=== PATIENT | female | born 1940 | race Caucasian/White ===

== ENCOUNTER 2018-06-08 17:09 | Emergency (ER) | payer OTHER ==
[~2018-06-08] VITALS: Ht 152.4 cm; Wt 79.4 kg
[~2018-06-08 17:09] MED LIST: Carafate1 GM/10 ML; Citalopram10 MG/5 ML; HYDPAM50 PO; HYOS0.375T PO; LISHYD1012; OMEP20ER; OMEP20ER PO; OXYACE5T PO; PRAV20; PROM6.25SY; ROSU10TA; SERT50; VENL75ER PO; [UNRECOGNIZED DRUG - REMARK]
[2018-06-08] MEDS ORDERED: LISI20 PO (17:24)
[2018-06-08] MEDS ORDERED: CLOP75 PO (17:25)
[2018-06-08] MEDS ORDERED: ASPI81CH PO (17:25)
[2018-06-08] MEDS ORDERED: CYCL10 PO (17:26)
[2018-06-08] MEDS ORDERED: OXYC5 (17:26)
[2018-06-08 18:04] LABS: BASOPHILS ABSOLUTE AUTO 0.04 K/mm3 (0.00-0.23); BASOPHILS PERCENT AUTO 0 % (0-2); EOSINOPHILS ABSOLUTE AUTO 0.01 K/mm3 (0.00-0.68); EOSINOPHILS PERCENT AUTO 0 % (0-6); Hematocrit 33.6 % (33.0-51.0); Hemoglobin 11.1 g/dL (11.5-16.0); IMMATURE GRAN ABSOLUTE AUTO 0.11 K/mm3 (0.00-0.10); IMMATURE GRAN PERCENT AUTO 1 % (0-1); LYMPHOCYTES ABSOLUTE AUTO 2.75 K/mm3 (0.84-5.20); LYMPHOCYTES PERCENT AUTO 17 % (21-46); MONOCYTES ABSOLUTE AUTO 1.17 K/mm3 (0.16-1.47); MONOCYTES PERCENT AUTO 7 % (4-13); Mean Corpuscular HGB 29.3 pg (26.0-34.0); Mean Corpuscular Volume 89 fL (80-100); NEUTROPHILS ABSOLUTE AUTO 11.99 K/mm3 (1.96-9.15); NEUTROPHILS PERCENT AUTO 75 % (41-73); Platelet Count 357 K/mm3 (150-400); RDW Coefficient Variation 12.9 % (11.7-14.2); RDW Standard Deviation 42.1 fL (35.1-46.3); Red Blood Cell Count 3.79 M/mm3 (3.80-5.20); White Blood Cell Count 16.07 K/mm3 (4.00-11.30)
[2018-06-08 18:06] LABS: Alanine Aminotransfer (ALT/SGP 39 U/L (12-78); Albumin/Globulin Ratio 0.7 (0.8-1.8); Alk Phos 198 U/L (50-136); Anion Gap 12 mmol/L (6-16); Aspartate Aminotrans (AST/SGOT 54 U/L (12-37); Bilirubin, Total 0.6 mg/dL (0.1-1.0); Blood Urea Nitrogen 14 mg/dL (8-24); Bun/Creatinine Ratio 15.3 (12.0-20.0); CO2, Blood 22 mmol/L (21-32); Calcium, Blood 8.6 mg/dL (8.5-10.1); Chloride, Blood 107 mmol/L (98-108); Creatinine, Blood 0.92 mg/dL (0.40-1.00); Globulin, Blood 4.1 g/dL (2.2-4.0); Glomerular Filtration Rate >60 (60-); Glucose, Blood 118 mg/dL (70-99); Sodium, Blood 141 mmol/L (136-145); Total Protein, Blood 7.1 g/dL (6.4-8.2)
[2018-06-08 19:01] LABS: Source, Urine Catheter
[2018-06-08 19:11] LABS: Appearance, Urine Hazy (Clear); Bilirubin, Urine Neg (Neg); Blood, Urine 1+ (Neg); Color, Urine Yellow (P-Yellow); Glucose Qualitative, Urine Neg (Neg); Ketones, Urine Neg (Neg); Leukocyte Esterase, Urine 1+ (Neg); Nitrite, Urine Neg (Neg); Protein, Urine Neg (Neg); Urobilinogen, Urine NORM (Normal); pH, Urine 6.5 (5.0-8.0)
[2018-06-08 19:20] LABS: Bacteria Many /hpf; Red Blood Cells, Urine Not Seen /hpf (0-2); Squamous Epithelial Cells Not Seen /hpf (Few)
== END 2018-06-08 19:25 | disposition short-term general hospital (02) ==
LOC: ER 17:09
PROVIDERS: Emergency Medicine
DX: R51 Headache (principal); R50.9 Fever, unspecified; N39.0 Urinary tract infection, site not specified; Z79.899 Other long term (current) drug therapy; Z79.82 Long term (current) use of aspirin; I10 Essential (primary) hypertension
CPT/HCPCS: 36415; 51702; 71045; 80053; 81001; 83605; 84484; 85025; 87077; 87086; 87186; 93005; 93010; 96361; 96365; 96375; 99285-25; J0713; J2405; J3010; J7030

== ENCOUNTER → 2018-06-19 | Outpatient (CLI) | payer OTHER ==
[~2018-06-19] MED LIST changes: +ASPI81CH PO; +CLOP75 PO; +CYCL10 PO; +LISI20 PO; +OXYC5
[2018-06-19 12:11] LABS: Hematocrit 32.2 % (33.0-51.0); Hemoglobin 10.1 g/dL (11.5-16.0); Mean Corpuscular HGB 28.1 pg (26.0-34.0); Mean Corpuscular HGB Conc 31.4 g/dL (31.5-36.5); Mean Corpuscular Volume 89 fL (80-100); Mean Platelet Volume 10.4 fL (9.1-12.4); Platelet Count 362 K/mm3 (150-400); RDW Coefficient Variation 13.4 % (11.7-14.2); White Blood Cell Count 8.77 K/mm3 (4.00-11.30)
[2018-06-19 12:22] LABS: Albumin, Blood 2.9 g/dL (3.4-5.0); Albumin/Globulin Ratio 0.8 (0.8-1.8); Bilirubin, Total 0.3 mg/dL (0.1-1.0); C-REACTIVE PROTEIN, EXT RANGE 4.85 mg/dL (0.000-0.300); Calcium, Blood 8.6 mg/dL (8.5-10.1); Creatinine, Blood 1.18 mg/dL (0.40-1.00); Globulin, Blood 3.8 g/dL (2.2-4.0); Potassium, Blood 3.5 mmol/L (3.5-5.5); Total Protein, Blood 6.7 g/dL (6.4-8.2)
[2018-06-19 12:44] LABS: BASOPHILS PERCENT MAN 0 % (0-2); EOSINOPHILS ABSOLUTE MAN 0.96 K/mm3 (0.00-0.68); EOSINOPHILS PERCENT MAN 11 % (0-6); LYMPHOCYTES ABSOLUTE MAN 1.49 K/mm3 (0.84-5.20); LYMPHOCYTES PERCENT MAN 17 % (21-46); MONOCYTES ABSOLUTE MAN 0.87 K/mm3 (0.16-1.47); MONOCYTES PERCENT MAN 10 % (4-13); NEUTROPHILS ABSOLUTE MAN 5.43 K/mm3 (1.96-9.15); SEG NEUTROPHILS PERCENT MAN 62 % (41-73); TOTAL CELLS COUNTED 100
[2018-06-19 16:22] LABS: Vancomycin, Trough 26.2 ug/mL (5.0-10.0)
== END ==
LOC: LAB 07:50 → LAB SHORT 07:50
PROVIDERS: Neurological Surgery
DX: G06.1 Intraspinal abscess and granuloma (principal); I25.10 Atherosclerotic heart disease of native coronary artery without angina pectoris; I10 Essential (primary) hypertension
CPT/HCPCS: 80053; 80202; 85007; 85027; 86140

== ENCOUNTER 2019-03-08 08:18 | Day surgery (SDC) | payer OTHER ==
[~2019-03-08] VITALS: Ht 152.4 cm; Wt 75.1 kg
[~2019-03-08 08:18] MED LIST changes: -Citalopram10 MG/5 ML
[2019-03-08] MEDS ORDERED: Naproxen375 MG PO (09:21)
--- NOTE | 2019-03-08 09:42 | NUR ---
03/08/[address] NOTIFIED OF PREOP BP READINGS. NO ORDERS AT THIS TIME.
== END 2019-03-08 10:39 | disposition home or self-care (01) ==
LOC: ORSCSDS 08:18
PROVIDERS: Internal Medicine Gastroenterology
PROC: 0DBM8ZX Excision of Descending Colon, Via Natural or Artificial Opening Endoscopic, Diagnostic (ICD-10-PCS; principal; 2019-03-08 09:45)
DX: Z12.11 Encounter for screening for malignant neoplasm of colon (principal); Z86.010 Personal history of colon polyps; D12.4 Benign neoplasm of descending colon; K57.30 Diverticulosis of large intestine without perforation or abscess without bleeding; K64.8 Other hemorrhoids; G47.33 Obstructive sleep apnea (adult) (pediatric); E66.9 Obesity, unspecified; Z68.33 Body mass index [BMI] 33.0-33.9, adult; Z79.899 Other long term (current) drug therapy
CPT/HCPCS: 88305; J2704; J7120

== ENCOUNTER 2019-06-03 14:57 | Inpatient (IN) | payer OTHER ==
[~2019-06-03] VITALS: Ht 152.4 cm; Wt 75.0 kg
[~2019-06-03 14:57] MED LIST changes: +Naproxen375 MG PO
[2019-06-03 15:29] LABS: BASOPHILS ABSOLUTE AUTO 0.04 K/mm3 (0.00-0.23); BASOPHILS PERCENT AUTO 1 % (0-2); EOSINOPHILS PERCENT AUTO 4 % (0-6); Hematocrit 35.6 % (33.0-51.0); Hemoglobin 11.5 g/dL (11.5-16.0); IMMATURE GRAN ABSOLUTE AUTO 0.02 K/mm3 (0.00-0.10); IMMATURE GRAN PERCENT AUTO 0 % (0-1); LYMPHOCYTES ABSOLUTE AUTO 2.68 K/mm3 (0.84-5.20); LYMPHOCYTES PERCENT AUTO 35 % (21-46); MONOCYTES ABSOLUTE AUTO 0.61 K/mm3 (0.16-1.47); MONOCYTES PERCENT AUTO 8 % (4-13); Mean Corpuscular HGB 27.4 pg (26.0-34.0); Mean Corpuscular HGB Conc 32.3 g/dL (31.5-36.5); Mean Corpuscular Volume 85 fL (80-100); Mean Platelet Volume 10.7 fL (9.1-12.4); NEUTROPHILS PERCENT AUTO 52 % (41-73); Platelet Count 260 K/mm3 (150-400); RDW Coefficient Variation 15.7 % (11.7-14.2); RDW Standard Deviation 48.3 fL (35.1-46.3); Red Blood Cell Count 4.19 M/mm3 (3.80-5.20); White Blood Cell Count 7.65 K/mm3 (4.00-11.30)
[2019-06-03 15:54] LABS: Troponin I <0.015 ng/mL (0.000-0.040)
[2019-06-03 16:06] LABS: Alanine Aminotransfer (ALT/SGP 21 U/L (12-78); Albumin, Blood 3.6 g/dL (3.4-5.0); Alk Phos 79 U/L (50-136); Anion Gap 6 mmol/L (6-16); Aspartate Aminotrans (AST/SGOT 17 U/L (12-37); Bilirubin, Total 0.3 mg/dL (0.1-1.0); Blood Urea Nitrogen 28 mg/dL (8-24); Bun/Creatinine Ratio 26.4 (12.0-20.0); CO2, Blood 21 mmol/L (21-32); Calcium, Blood 8.9 mg/dL (8.5-10.1); Chloride, Blood 116 mmol/L (98-108); Creatinine, Blood 1.06 mg/dL (0.40-1.00); Globulin, Blood 3.5 g/dL (2.2-4.0); Glomerular Filtration Rate 53 (60-); Glucose, Blood 102 mg/dL (70-99); Potassium, Blood 4.3 mmol/L (3.5-5.5); Sodium, Blood 143 mmol/L (136-145); Total Protein, Blood 7.1 g/dL (6.4-8.2)
[2019-06-03] MEDS ORDERED: Prinivil10 MG PO (17:30)
[2019-06-03] MEDS ORDERED: LOW DOSE ASPIRI81 MG PO (17:31)
[2019-06-03] MEDS ORDERED: Isosorbide Mono30 MG PO (17:31)
[2019-06-03] MEDS ORDERED: NITR.4SL SL (17:32)
[2019-06-03] MEDS ORDERED: Citalopram HBr10 MG PO (18:28)
[2019-06-03] MEDS ORDERED: Benadryl25 MG PO (18:29)
[2019-06-03] MEDS ORDERED: CLOP75 PO (19:00)
--- NOTE | 2019-06-03 21:12 | NUR ---
PATIENT IS A NEW ADMIT FROM THE ED. SELF TRANSFER FROM [facility] TO BED. AXO X 3. PATIENT DENIES CHEST PAIN ON ADMIT. NITRO PATCH GALI CHEST IN PLACE FROM ED. PATIENT ORIENTED TO ROOM AND CALL LIGHT SYSTEM. ON RA AND WAITNG FOR TELEMETRY TO BE PLACED. DENIES SOB AND N/V. BP 145/90 DOWN FROM 214/102 IN ED. PATIENT RESTING IN BED AND RECEIVING CALLS FROM SPOUSE. WILL CONTINUE TO MONITOR.
--- NOTE | 2019-06-03 22:00 | NUR ---
TELEMETRY IN PLACE AND TECH REPORTS NSR, BBB, @ 79
--- NOTE | 2019-06-04 04:30 | NUR ---
SHIFT SUMMARY PATIENT HAD NO ACUTE CHANGES OBSERVED THIS SHIFT. DENIES CHEST PAIN, SOB, AND N/V. AXO X3 AND INDEPENDENT IN ROOM. SECOND TROPONIN NEGATIVE. VSS/AFEBRILE. PIV REMAINS INTACT. DEVELOPMENT TECHNICAL LEAD REPORTS NSR,BBB AT 79. TAKES MEDICATION WHOLE WITH WATER. NITRO PATCH GALI CHEST. ECHO IN AM. CALL LIGHT IN REACH. BED IN LOWEST POSITION. WILL CONTINUE TO MONITOR UNTIL DAY SHIFT NURSE ASSUMES CARE.
[2019-06-04 06:59] LABS: BASOPHILS ABSOLUTE AUTO 0.03 K/mm3 (0.00-0.23); BASOPHILS PERCENT AUTO 1 % (0-2); EOSINOPHILS ABSOLUTE AUTO 0.29 K/mm3 (0.00-0.68); EOSINOPHILS PERCENT AUTO 5 % (0-6); Hematocrit 35.3 % (33.0-51.0); Hemoglobin 11.2 g/dL (11.5-16.0); IMMATURE GRAN ABSOLUTE AUTO 0.02 K/mm3 (0.00-0.10); IMMATURE GRAN PERCENT AUTO 0 % (0-1); LYMPHOCYTES ABSOLUTE AUTO 2.51 K/mm3 (0.84-5.20); LYMPHOCYTES PERCENT AUTO 40 % (21-46); MONOCYTES ABSOLUTE AUTO 0.56 K/mm3 (0.16-1.47); MONOCYTES PERCENT AUTO 9 % (4-13); Mean Corpuscular HGB 26.7 pg (26.0-34.0); Mean Corpuscular HGB Conc 31.7 g/dL (31.5-36.5); Mean Corpuscular Volume 84 fL (80-100); Mean Platelet Volume 10.3 fL (9.1-12.4); NEUTROPHILS ABSOLUTE AUTO 2.85 K/mm3 (1.96-9.15); NEUTROPHILS PERCENT AUTO 46 % (41-73); Platelet Count 220 K/mm3 (150-400); RDW Coefficient Variation 15.6 % (11.7-14.2); White Blood Cell Count 6.26 K/mm3 (4.00-11.30)
[2019-06-04 07:20] LABS: Alanine Aminotransfer (ALT/SGP 20 U/L (12-78); Albumin, Blood 3.3 g/dL (3.4-5.0); Albumin/Globulin Ratio 1.1 (0.8-1.8); Alk Phos 73 U/L (50-136); Anion Gap 8 mmol/L (6-16); Aspartate Aminotrans (AST/SGOT 16 U/L (12-37); Bilirubin, Total 0.5 mg/dL (0.1-1.0); Blood Urea Nitrogen 25 mg/dL (8-24); Bun/Creatinine Ratio 24.3 (12.0-20.0); CHOL/HDL RATIO 5.5; CO2, Blood 23 mmol/L (21-32); Calcium, Blood 8.3 mg/dL (8.5-10.1); Chloride, Blood 115 mmol/L (98-108); Cholesterol 243 mg/dL (50-200); Creatinine, Blood 1.03 mg/dL (0.40-1.00); Globulin, Blood 3.1 g/dL (2.2-4.0); Glomerular Filtration Rate 55 (60-); Glucose, Blood 95 mg/dL (70-99); HDL Cholesterol 44 mg/dL (>39); LDL/HDL RATIO 3.9; Low Density Lipoprotein Chol 170 mg/dL (0-110); Magnesium, Blood 2.1 mg/dL (1.6-2.4); Potassium, Blood 4.1 mmol/L (3.5-5.5); Sodium, Blood 146 mmol/L (136-145); Total Protein, Blood 6.4 g/dL (6.4-8.2); Triglycerides 145 mg/dL (30-160); Very Low Density Lipoprot Chol 29 mg/dL (6-32)
[2019-06-04 07:24] LABS: Thyroid Stimulating Hormone 0.984 uIU/mL (0.360-4.800)
--- NOTE | 2019-06-04 11:16 | NUR ---
Echocardiogram completed.
--- NOTE | 2019-06-04 19:17 | NUR ---
SHIFT SUMMARY: NO ACUTE CHANGES TO REPORT THIS SHIFT. PT A&O; CALM AND COOPERATIVE WITH CARE. NO C/O CHEST PAIN THIS SHIFT. TELE IN PLACE; NSR c BBB @ 76 PER [facility] CONSULTANT DURING MORNING ASSESSMENT. PART 1 OF LAMONT TODAY; SECOND PART 06/05 IN AM. REPORT GIVEN TO ONCOMING RN.
[2019-06-05 04:34] LABS: BASOPHILS ABSOLUTE AUTO 0.04 K/mm3 (0.00-0.23); BASOPHILS PERCENT AUTO 1 % (0-2); EOSINOPHILS ABSOLUTE AUTO 0.28 K/mm3 (0.00-0.68); EOSINOPHILS PERCENT AUTO 4 % (0-6); Hematocrit 35.4 % (33.0-51.0); Hemoglobin 11.2 g/dL (11.5-16.0); IMMATURE GRAN ABSOLUTE AUTO 0.02 K/mm3 (0.00-0.10); IMMATURE GRAN PERCENT AUTO 0 % (0-1); LYMPHOCYTES ABSOLUTE AUTO 3.01 K/mm3 (0.84-5.20); LYMPHOCYTES PERCENT AUTO 42 % (21-46); MONOCYTES ABSOLUTE AUTO 0.64 K/mm3 (0.16-1.47); MONOCYTES PERCENT AUTO 9 % (4-13); Mean Corpuscular HGB 26.9 pg (26.0-34.0); Mean Corpuscular HGB Conc 31.6 g/dL (31.5-36.5); Mean Corpuscular Volume 85 fL (80-100); Mean Platelet Volume 10.5 fL (9.1-12.4); NEUTROPHILS ABSOLUTE AUTO 3.26 K/mm3 (1.96-9.15); NEUTROPHILS PERCENT AUTO 45 % (41-73); Platelet Count 227 K/mm3 (150-400); RDW Coefficient Variation 15.5 % (11.7-14.2); RDW Standard Deviation 48.3 fL (35.1-46.3); Red Blood Cell Count 4.17 M/mm3 (3.80-5.20); White Blood Cell Count 7.25 K/mm3 (4.00-11.30)
[2019-06-05 05:04] LABS: Bun/Creatinine Ratio 23.9 (12.0-20.0); Calcium, Blood 9.1 mg/dL (8.5-10.1); Creatinine, Blood 1.17 mg/dL (0.40-1.00); Potassium, Blood 4.2 mmol/L (3.5-5.5)
[2019-06-05 05:06] LABS: Percent Saturation 15.4 % (15.0-50.0)
--- NOTE | 2019-06-05 06:46 | NUR ---
SHIFT SUMMARY PT HAS BEEN NPO SINCE MIDNIGHT. PT SLEPT T/O SHIFT. PT HAD NO CP OR SOB NOTED. PT CURRENTLY SLEEPING AND BREATHING EASY. CALL LIGHT IN REACH.
--- NOTE | 2019-06-05 14:08 | NUR ---
DR. CHAUDHARI AT BEDSIDE TALKING WITH PATIENT
--- NOTE | 2019-06-05 17:30 | NUR ---
SHIFT SUMMARY OX4, INDEPENDENT. ABNORMAL STRESS TEST COMPLETED TODAY. ANGIOGRAM TOMORROW ORDERED BY DR. READ. DENIES ANY CP, SOB OR NAUSEA TODAY. HX OF CABG X6. EATING AND DRINKING WELL.
--- NOTE | 2019-06-06 05:00 | NUR ---
Patient has had a rest full night. no complaints of pain or discomfort. She is knowledgable about the angiogram and her only question is about when the testing will take place. She has been up in the room and in the hallway without issue. call light within reach.
--- NOTE | 2019-06-06 14:52 | NUR ---
TRANSPORTED TO [facility] VIA W/C IN NO ACUTE DISTRESS ACCOMPANIED BY [facility] STAFF.
--- NOTE | 2019-06-06 17:45 | NUR ---
INITIAL ASSESSMENT PATIENT ARRIVED TO UNIT FROM RN WOUND CARE AT 1725. PATIENT ALERT AND ORIENTED X 4, AFEBRILE. PATIENT HAS NO COMPLAINTS OF PAIN. NOW IN ROOM. PATIENT SATTING 90% AND GREATER ON RA. LUNGS CLEAR IN UPPER LOBES, DIMINISHED IN LOWER LOBES. PATIENT REPORTS THAT SHE HAS A DRY COUGH. PATIENT IN SR WITH BBB. HR 80S TO 90S. BP STABLE. RADIAL PULSES 2+ IN STRENGTH. D. PEDIS PULSES 2+ IN STRENGTH. TIBIAL PULSES 1+ IN STRENGTH. PATIENT'S LEGS APPEAR TO HAVE NON-PITTING EDEMA. PATIENT STATES HER LARGE LEGS RUN IN HER FAMILY. PATIENT REPORTS THAT LEGS HAVE BEEN LARGE AND TENDER SINCE SHE WAS 52 YEARS OLD. GI WNL. WNL. R GROIN RN WOUND CARE ACCESS SITE WNL- NO BLEEDING, BRUISING, HEMATOMA NOTED. IV FLUSHED AND SALINE LOCKED. PATIENT ORIENTED TO UNIT, ROOM AND CALL SYSTEM. BED LOW, CALL LIGHT IN REACH. WILL CONTINUE TO MONITOR PATIENT FREQUENTLY.
--- NOTE | 2019-06-06 19:07 | NUR ---
SHIFT SUMMARY PATIENT REMAINS UNCHANGED SINCE ADMIT TO UNIT SHORT TIME AGO. VITAL SIGNS HAVE REMAINED STABLE. PATIENT CONTINUES TO LIE STILL, WITHOUT LIFTING HEAD OR MOVING R LEG. PATIENT DID NOT VOID OR HAVE BM SINCE ARRIVING. PATIENT DID EAT TURKEY SANDWICH WITH NO PROBLEMS. R GROIN SITE REMAINS UNCHANGED- NO BLEEDING, BRUISING, OR HEMATOMA NOTED. REPORT GIVEN TO ASSUMING NURSE, NAYAN PADILLA.
--- NOTE | 2019-06-06 20:31 | NUR ---
SPOKE WITH DR. READ ABOUT PT TRANSFERING TO [facility]. DR. READ STATES IT WILL BE DONE IN AM. PT RESTING QUIETLY IN BED. REMAINS FLAT WITHOUT FLEXION OF R LEG OR NECK D/T R FEMORAL ACCESS SITE FROM ANGIOGRAM. SITE IS STABLE WITHOUT SIGN OF BLEEDING OR HEMATOMA. PT C/O OF MONIQUE THAT TYLENOL WAS GIVEN FOR. NO OTHER C/O PAIN. CALL LIGHT IN REACH.
--- NOTE | 2019-06-07 06:39 | NUR ---
SUMMARY PT DID WELL DURING THE NIGHT. DENIES PAIN. R GROIN SITE REMAINS STABLE. HAS BEEN UP TO BATHROOM WITHOUT ISSUE. NO SIGN OF DISTRESS.
--- NOTE | 2019-06-07 07:41 | NUR ---
CARE ASSUMED CARE AND REPORT ASSUMED FROM NAYAN VILLELA. PT SITTING UP IN BED. DENIES CHEST PAIN THIS AM AND DENIES ANY NAUSEA OR ABDOMINAL PAIN. VSS. NSR, HR 70S. BP STABLE. AFEBRILE. PT UPDATED ON TRANSFER STATUS AND INFORMED THAT CURRENTLY AWAITING JUST AN MD CONSULT FROM [facility]; NO TRANSFER IN PLAN AT THIS TIME. ALSO UPDATED ON TELEPHONE. IV SALINE LOCKED. PT A/O, CALM AND APPROPRIATE. R GROIN SITE IS CLEAN AND DRY AND IS SOFT AROUND SITE. LARGE, ROUND, LOCALIZED HEMATOMA TO ABDOMEN; LIKELY FROM [place]. WILL CONTINUE TO MONITOR.
--- NOTE | 2019-06-07 09:15 | NUR ---
COFFEE MAKER NOTE: DR. READ CALLED TO [facility]NALY[facility] AT [facility] HAS NOT ACCEPTED THE PT FOR TRANSFER BECAUSE HE WANTS TO SEE HER AN OUTPATIENT. DR. READ WILL MEDICALLY MANAGE FOR NOW. ORDER FOR IMDUR RECEIVED AND IMPLEMENTED.
--- NOTE | 2019-06-07 12:12 | NUR ---
REASSESSMENT PT GAVE HERSELF BEDBATH AND LINEN CHANGE WAS COMPLETED. REFUSED LUNCH, SHE STATES SHE IS TOO TIRED AND WOULD LIKE TO TAKE A NAP AT THIS TIME. HAD EXTENSIVE CONVERSATION WITH PT AND REGARDING WHY SHE IS NO LONGER BEING TRANSFERRED AND INSTEAD BEING MEDICALLY MANAGED HERE. VSS AT THIS TIME. IV SALINE LOCKED. AFEBRILE. WILL CONTINUE TO MONITOR.
[2019-06-07 15:29] LABS: BASOPHILS ABSOLUTE AUTO 0.06 K/mm3 (0.00-0.23); BASOPHILS PERCENT AUTO 1 % (0-2); EOSINOPHILS ABSOLUTE AUTO 0.19 K/mm3 (0.00-0.68); EOSINOPHILS PERCENT AUTO 2 % (0-6); Hematocrit 38.9 % (33.0-51.0); Hemoglobin 12.4 g/dL (11.5-16.0); IMMATURE GRAN ABSOLUTE AUTO 0.04 K/mm3 (0.00-0.10); IMMATURE GRAN PERCENT AUTO 0 % (0-1); LYMPHOCYTES ABSOLUTE AUTO 2.93 K/mm3 (0.84-5.20); LYMPHOCYTES PERCENT AUTO 28 % (21-46); MONOCYTES PERCENT AUTO 7 % (4-13); Mean Corpuscular HGB 27.1 pg (26.0-34.0); Mean Corpuscular HGB Conc 31.9 g/dL (31.5-36.5); Mean Corpuscular Volume 85 fL (80-100); Mean Platelet Volume 10.8 fL (9.1-12.4); NEUTROPHILS ABSOLUTE AUTO 6.53 K/mm3 (1.96-9.15); NEUTROPHILS PERCENT AUTO 63 % (41-73); Platelet Count 282 K/mm3 (150-400); RDW Coefficient Variation 15.8 % (11.7-14.2); Red Blood Cell Count 4.58 M/mm3 (3.80-5.20); White Blood Cell Count 10.45 K/mm3 (4.00-11.30)
[2019-06-07 15:48] LABS: Bun/Creatinine Ratio 24.8 (12.0-20.0); Calcium, Blood 9.2 mg/dL (8.5-10.1); Creatinine, Blood 1.21 mg/dL (0.40-1.00); Potassium, Blood 4.1 mmol/L (3.5-5.5)
--- NOTE | 2019-06-07 16:40 | NUR ---
REASSESSMENT PT INDEPENDENT IN ROOM; UP TO TOILET AND SINK WITH NO ASSIST. CURRENTLY SITTING UP IN BED KNITTING. DENIES CHEST PAIN. BP 83/57, MAP 67. ASYMPTOMATIC AT THIS TIME. AFEBRILE. CALLED AND UPDATED ON TELEPHONE REGARDING CONVERSATION PT HAD WITH MD BLANCO. BOTH PT AND DISPLAY UNDERSTANDING OF FURTHER PLAN, MEDICATION ADJUSTMENT, AND PLAN TO STAY AT [facility]. AWAITING BED IN PCU. WILL CONTINUE TO MONITOR.
--- NOTE | 2019-06-07 17:01 | NUR ---
TRANSFER REPORT CALLED TO [facility] IN PCU. PT TO BE TRANSFERRED TO PCU BY WHEELCHAIR.
--- NOTE | 2019-06-07 17:15 | NUR ---
ASSUMED CARE PT TRANSFERRED FROM ICU. PT ORIENTED TO UNIT. VS STABLE. PT DENIES ANY CHEST PAIN OR PRESSURE. HR NSR ON MONITOR. PT ABLE TO AMBULATE TO BED INDEPENDENTLY. PT SITTING UP EATING DINNER. NS INFUSING PER ORDERS. WILL CONTINUE TO MONITOR AND REPORT TO ONCOMING RN. CALL LIGHT IN REACH.
[2019-06-08 03:56] LABS: Bun/Creatinine Ratio 26.2 (12.0-20.0); Calcium, Blood 8.7 mg/dL (8.5-10.1); Creatinine, Blood 1.07 mg/dL (0.40-1.00)
--- NOTE | 2019-06-08 04:33 | NUR ---
Shift Summary VSS. No apparent sign of distress. No changes to mentation, pt remains A & O. Pt denies chest pain or pressure. Femoral site free from s/sx bleeding, hematoma, bruising. Site soft and nontender. Breathing remains easy and unlabored on RA. Pt calls appropriately, able to make needs known, walks to bathroom with minimal assistance. See shift assessment for detailed assessment. No changes from initial assessment. Pt sleeping thoughout shift, appears comfortable, no complaint of pain. No changes or events on tele. Will continue to monitor until shift change.
[2019-06-08] MEDS ORDERED: ATOR40TA PO (14:20)
[2019-06-08] MEDS ORDERED: METO25ER PO (14:24)
--- NOTE | 2019-06-08 15:10 | NUR ---
DISHCARGE NOTE PT ALERT AND ORIENTED. VS STABLE. BP STABLE. HR NSR WITH BBB. PT DENIES ANY CHEST PAIN AT REST OR WITH EXERTION. ORDERS FOR DISCHARGE PROVIDED. PT EDUCATED ON DISCHARGE INSTRUCTIONS AND NEW MEDICATIONS. ALL QUESTIONS ANSWERED. PT TAKEN OUT BY WHEELCHAIR.
== END 2019-06-08 15:08 | disposition short-term general hospital (02) | DRG 287 ==
LOC: ER 14:57 → MEDS 14:58 → ER 18:38 → MEDS 18:38 → ICUW 06-06 14:55 → PCU 06-07 17:15
PROVIDERS: Hospitalist; Internal Medicine Cardiovascular Disease; Physician Assistant; ADMIT Internal Medicine
PROC: B2111ZZ Fluoroscopy of Multiple Coronary Arteries using Low Osmolar Contrast (ICD-10-PCS; principal; 2019-06-06)
PROC: B2131ZZ Fluoroscopy of Multiple Coronary Artery Bypass Grafts using Low Osmolar Contrast (ICD-10-PCS; 2019-06-06)
DX: I25.700 Atherosclerosis of coronary artery bypass graft(s), unspecified, with unstable angina pectoris (principal); I25.110 Atherosclerotic heart disease of native coronary artery with unstable angina pectoris; E87.0 Hyperosmolality and hypernatremia; I25.82 Chronic total occlusion of coronary artery; Z95.1 Presence of aortocoronary bypass graft; Z86.73 Personal history of transient ischemic attack (TIA), and cerebral infarction without residual deficits; Z79.82 Long term (current) use of aspirin; D64.9 Anemia, unspecified; E78.5 Hyperlipidemia, unspecified; K21.9 Gastro-esophageal reflux disease without esophagitis; N18.3 Chronic kidney disease, stage 3 (moderate); I12.9 Hypertensive chronic kidney disease with stage 1 through stage 4 chronic kidney disease, or unspecified chronic kidney disease; G47.30 Sleep apnea, unspecified; I25.9 Chronic ischemic heart disease, unspecified
CPT/HCPCS: 36415; 71046; 76937; 78452; 80048; 80053; 80061; 82728; 83540; 83550; 83735; 83880; 84443; 84484; 85025; 93005; 93010; 93017; 93306; 93459; 96372; 99152; 99153; 99285-25; A9270; A9500; C1769; G0378; J0360; J0706; J1644; J1650; J2250; J2785; J3010; J7030; Q9967

== ENCOUNTER 2020-12-22 14:58 | Emergency (ER) | payer OTHER ==
[~2020-12-22] VITALS: Ht 152.4 cm; Wt 74.8 kg
[~2020-12-22 14:58] MED LIST changes: +ATOR40TA PO; +Benadryl25 MG PO; +CITA20 PO; +Citalopram HBr10 MG PO; +EZET10 PO; +Isosorbide Mono30 MG PO; +LOW DOSE ASPIRI81 MG PO; +METO25ER PO; +NAPR500ERA PO; +NITR.4SL SL; +Prinivil10 MG PO
== END 2020-12-22 16:11 | disposition home or self-care (01) ==
LOC: ER 14:58
DX: K59.00 Constipation, unspecified (principal); I10 Essential (primary) hypertension; I25.10 Atherosclerotic heart disease of native coronary artery without angina pectoris; Z79.02 Long term (current) use of antithrombotics/antiplatelets; Z79.899 Other long term (current) drug therapy; Z91.018 Allergy to other foods; Z86.73 Personal history of transient ischemic attack (TIA), and cerebral infarction without residual deficits
CPT/HCPCS: 99284; A9270

== ENCOUNTER 2022-05-16 19:54 | Emergency (ER) | payer OTHER ==
[~2022-05-16] VITALS: Ht 165.1 cm; Wt 70.3 kg
[~2022-05-16 19:54] MED LIST changes: +CEPH500 PO
[2022-05-16 20:50] LABS: BASOPHILS ABSOLUTE AUTO 0.04 K/mm3 (0.00-0.23); BASOPHILS PERCENT AUTO 0 % (0-2); EOSINOPHILS PERCENT AUTO 0 % (0-6); Hematocrit 36.5 % (33.0-51.0); Hemoglobin 11.8 g/dL (11.5-16.0); IMMATURE GRAN ABSOLUTE AUTO 0.07 K/mm3 (0.00-0.10); IMMATURE GRAN PERCENT AUTO 1 % (0-1); LYMPHOCYTES ABSOLUTE AUTO 0.84 K/mm3 (0.84-5.20); LYMPHOCYTES PERCENT AUTO 6 % (21-46); MONOCYTES ABSOLUTE AUTO 0.62 K/mm3 (0.16-1.47); MONOCYTES PERCENT AUTO 5 % (4-13); Mean Corpuscular HGB 26.5 pg (26.0-34.0); Mean Corpuscular HGB Conc 32.3 g/dL (31.5-36.5); Mean Corpuscular Volume 82 fL (80-100); Mean Platelet Volume 10.2 fL (9.1-12.4); NEUTROPHILS ABSOLUTE AUTO 11.76 K/mm3 (1.96-9.15); NEUTROPHILS PERCENT AUTO 88 % (41-73); Platelet Count 218 K/mm3 (150-400); RDW Coefficient Variation 15.6 % (11.7-14.2); RDW Standard Deviation 46.6 fL (35.1-46.3); Red Blood Cell Count 4.46 M/mm3 (3.80-5.20); White Blood Cell Count 13.33 K/mm3 (4.00-11.30)
[2022-05-16 21:10] LABS: Albumin, Blood 3.3 g/dL (3.4-5.0); Albumin/Globulin Ratio 0.9 (0.8-1.8); Bilirubin, Total 0.5 mg/dL (0.1-1.0); Bun/Creatinine Ratio 13.3 (12.0-20.0); Calcium, Blood 8.6 mg/dL (8.5-10.1); Creatinine, Blood 2.18 mg/dL (0.40-1.00); Globulin, Blood 3.5 g/dL (2.2-4.0); Total Protein, Blood 6.8 g/dL (6.4-8.2)
[2022-05-16 23:54] LABS: Source, Urine Clean Catch
[2022-05-17 00:05] LABS: Bilirubin, Urine Neg (Neg); Blood, Urine 5+ (Neg); Glucose Qualitative, Urine Neg (Neg); Ketones, Urine 1+ (Neg); Leukocyte Esterase, Urine 3+ (Neg); Nitrite, Urine Neg (Neg); Protein, Urine 4+ (Neg); Specific Gravity, Urine 1.015 (1.003-1.022); Urobilinogen, Urine NORM (Normal); pH, Urine 6.5 (5.0-8.0)
[2022-05-17 00:15] LABS: Appearance, Urine Turbid (Clear); Color, Urine Brown (P-Yellow)
[2022-05-17 00:16] LABS: Bacteria Few /hpf; Red Blood Cells, Urine TNTC /hpf (0-2); Squamous Epithelial Cells Rare /hpf (Few); White Blood Cells, Urine 50-100 /hpf (0-5)
[2022-05-17] MEDS ORDERED: CEPH500 PO ×3 (01:20→01:21)
== END 2022-05-17 01:34 | disposition home or self-care (01) ==
LOC: ER 19:54
PROVIDERS: Student in an Organized Health Care Education/Training Program
DX: R10.9 Unspecified abdominal pain (principal); R82.81 Pyuria; I25.10 Atherosclerotic heart disease of native coronary artery without angina pectoris; I10 Essential (primary) hypertension; Z86.73 Personal history of transient ischemic attack (TIA), and cerebral infarction without residual deficits; Z95.5 Presence of coronary angioplasty implant and graft; Z95.1 Presence of aortocoronary bypass graft; Z91.018 Allergy to other foods; Z79.899 Other long term (current) drug therapy
CPT/HCPCS: 74176; 80053; 81001; 85025; 96374; 96375; 99285-25; J0696; J1885; J3010; J7030

== ENCOUNTER 2022-10-24 15:38 | Emergency (ER) | payer OTHER ==
[~2022-10-24] VITALS: Ht 152.4 cm; Wt 67.1 kg
[2022-10-24 16:40] LABS: BASOPHILS ABSOLUTE AUTO 0.03 K/mm3 (0.00-0.23); BASOPHILS PERCENT AUTO 1 % (0-2); EOSINOPHILS ABSOLUTE AUTO 0.05 K/mm3 (0.00-0.68); EOSINOPHILS PERCENT AUTO 1 % (0-6); Hematocrit 35.5 % (33.0-51.0); Hemoglobin 11.9 g/dL (11.5-16.0); IMMATURE GRAN ABSOLUTE AUTO 0.02 K/mm3 (0.00-0.10); IMMATURE GRAN PERCENT AUTO 0 % (0-1); LYMPHOCYTES ABSOLUTE AUTO 1.72 K/mm3 (0.84-5.20); LYMPHOCYTES PERCENT AUTO 27 % (21-46); MONOCYTES ABSOLUTE AUTO 0.53 K/mm3 (0.16-1.47); MONOCYTES PERCENT AUTO 8 % (4-13); Mean Corpuscular HGB 30.1 pg (26.0-34.0); Mean Corpuscular HGB Conc 33.5 g/dL (31.5-36.5); Mean Corpuscular Volume 90 fL (80-100); Mean Platelet Volume 10.6 fL (9.1-12.4); NEUTROPHILS ABSOLUTE AUTO 3.95 K/mm3 (1.96-9.15); NEUTROPHILS PERCENT AUTO 63 % (41-73); Platelet Count 225 K/mm3 (150-400); RDW Coefficient Variation 13.9 % (11.7-14.2); RDW Standard Deviation 45.4 fL (35.1-46.3); Red Blood Cell Count 3.96 M/mm3 (3.80-5.20)
[2022-10-24 17:07] LABS: Albumin, Blood 3.4 g/dL (3.4-5.0); Bilirubin, Total 0.3 mg/dL (0.1-1.0); Bun/Creatinine Ratio 18.3 (12.0-20.0); Calcium, Blood 8.6 mg/dL (8.5-10.1); Creatinine, Blood 1.26 mg/dL (0.40-1.00); Globulin, Blood 3.5 g/dL (2.2-4.0); Potassium, Blood 4.8 mmol/L (3.5-5.5); Total Protein, Blood 6.9 g/dL (6.4-8.2)
== END 2022-10-24 20:30 | disposition home or self-care (01) ==
LOC: ER 15:38
PROVIDERS: Student in an Organized Health Care Education/Training Program
DX: R55 Syncope and collapse (principal); S00.11XA Contusion of right eyelid and periocular area, initial encounter; W19.XXXA Unspecified fall, initial encounter; I10 Essential (primary) hypertension; I25.10 Atherosclerotic heart disease of native coronary artery without angina pectoris; Z91.018 Allergy to other foods; Z79.899 Other long term (current) drug therapy; Z79.82 Long term (current) use of aspirin
CPT/HCPCS: 70450; 80053; 83880; 84484; 85025

== ENCOUNTER 2023-07-17 08:25 | Inpatient (IN) | payer OTHER ==
[~2023-07-17] VITALS: Ht 152.4 cm; Wt 65.4 kg
[~2023-07-17 08:25] MED LIST changes: +Aspir 8181 MG PO; -CITA20 PO; +CITALOPRAM HBR10 MG PO; +EZETIMIBE10 M6 PO; +HYDHCL25 PO; -LOW DOSE ASPIRI81 MG PO; +Norco 5-325 Ta1 EACH PO
[2023-07-17 09:27] LABS: BASOPHILS ABSOLUTE AUTO 0.09 K/mm3 (0.00-0.23); BASOPHILS PERCENT AUTO 1 % (0-2); EOSINOPHILS ABSOLUTE AUTO 0.24 K/mm3 (0.00-0.68); EOSINOPHILS PERCENT AUTO 3 % (0-6); Hematocrit 42.2 % (33.0-51.0); IMMATURE GRAN ABSOLUTE AUTO 0.02 K/mm3 (0.00-0.10); IMMATURE GRAN PERCENT AUTO 0 % (0-1); LYMPHOCYTES ABSOLUTE AUTO 2.17 K/mm3 (0.84-5.20); LYMPHOCYTES PERCENT AUTO 25 % (21-46); MONOCYTES ABSOLUTE AUTO 0.52 K/mm3 (0.16-1.47); MONOCYTES PERCENT AUTO 6 % (4-13); Mean Corpuscular HGB 28.2 pg (26.0-34.0); Mean Corpuscular HGB Conc 33.2 g/dL (31.5-36.5); Mean Corpuscular Volume 85 fL (80-100); Mean Platelet Volume 11.5 fL (9.1-12.4); NEUTROPHILS PERCENT AUTO 65 % (41-73); Platelet Count 264 K/mm3 (150-400); RDW Standard Deviation 43.2 fL (35.1-46.3); Red Blood Cell Count 4.96 M/mm3 (3.80-5.20); White Blood Cell Count 8.64 K/mm3 (4.00-11.30)
[2023-07-17 09:30] LABS: Albumin, Blood 3.6 g/dL (3.4-5.0); Albumin/Globulin Ratio 1.1 (0.8-1.8); Bilirubin, Total 0.9 mg/dL (0.1-1.0); Bun/Creatinine Ratio 17.1 (12.0-20.0); Creatinine, Blood 1.05 mg/dL (0.40-1.00); Globulin, Blood 3.4 g/dL (2.2-4.0); Potassium, Blood 3.8 mmol/L (3.5-5.5)
[2023-07-17 13:19] VITALS: BP 100/83
[2023-07-17] MEDS ORDERED: Isosorbide Dini30 MG PO (13:56)
[2023-07-17] MEDS ORDERED: TYLENOL325 MG PO (13:57)
[2023-07-17] MEDS ORDERED: CELE200 PO (13:57)
[2023-07-17 15:53] VITALS: BP 120/91
--- NOTE | 2023-07-17 17:15 | NUR ---
SHIFT SUMMARY; PATIENT WAS AN ER ADMIT AT 1330 TODAY. SHE IS AO X 4 ON ARRIVAL TO UNIT. NO SKIN ISSUES NOTED ON ASSESSMEBNT. SHE HAS INCREASED WORK OF BREATHING WHEN AMBUYLATING TO BATHROOM AND BACK. HER VITAL SIGNS ARE STABLE. HER ASSESSMENTS ARE DONE AND CHARTED. PER PATIENT SHE LIVES ALONE. SPOUSE WHO WAS A VOLUNTEER AT HOSPITAL PASSED IN JANUARY THIS YEAR. SISTER AT BEDSIDE PROVIDES MUCH ENCOURAGEMENT AND EMOTIONAL SUPPORT. HER LUNGS ARE DIM THROUGHOUT AND WHEEZES NOTED IN UPPER LOBES. SHE TAKES HER PILLS WHOLE WITH WATER. NO ASSIST WITH HER ADL'S IS NECESSARY. WILL CONTINUE TO MONITOR THIS PATIENT CLOSELY UNTIL REPORT TO NOC SHIFT AT SHIFT CHANGE.
--- NOTE | 2023-07-17 17:32 | NUR ---
"Spiritual Care | Pt. Request Pt. is awake in bed and welcomes my visit. Pt. is pleasant and rapport is established. Facilitate a life review and considered matters of mateo and belief. Pt. displays evidence of being engaged and aware. Pt. verbalizes the relatively recent loss of her . Listen with empathy and interest. Prayed with Pt. Pt. got out of bed and gave me a hug and welcomed this chapalin to return in the morning."
[2023-07-17 21:13] VITALS: BP 131/80
[2023-07-18 03:06] VITALS: BP 137/94
--- NOTE | 2023-07-18 03:45 | NUR ---
SHIFT SUMMARY. SHIFT HAS BEEN MOSTLY UNREMARKABLE. PT IS AOX4, PLEASANT, COOPERATIVE WITH CARE. SLEPT THROUGH MOST OF SHIFT THUS FAR. INDEPENDENT WITHIN ROOM TO BATHROOM. CALLS APPROPRIATELY FOR ASSISTANCE. NO PAIN REPORTED THIS SHIFT. REQUESTED SLEEP AID EARLY IN SHIFT. NOTIFIED HOSPITALIST [facility] WHO ORDERED MELATONIN 5 MG BEDTIME PRN. ADMINISTERED AFTER WHICH TIME PT HAS BEEN SLEEPING. CONTINUES TO SATURATE WELL ON ROOM AIR. BED LOCKED IN LOWEST POSITION. CALL LIGHT LEFT WITHIN REACH.
[2023-07-18 05:37] LABS: Hematocrit 42.1 % (33.0-51.0); Hemoglobin 14.2 g/dL (11.5-16.0); Mean Corpuscular HGB 28.4 pg (26.0-34.0); Mean Corpuscular HGB Conc 33.7 g/dL (31.5-36.5); Mean Corpuscular Volume 84 fL (80-100); Mean Platelet Volume 11.7 fL (9.1-12.4); Platelet Count 252 K/mm3 (150-400); RDW Coefficient Variation 13.9 % (11.7-14.2); RDW Standard Deviation 42.5 fL (35.1-46.3); White Blood Cell Count 9.52 K/mm3 (4.00-11.30)
[2023-07-18 06:21] LABS: Magnesium, Blood 2.2 mg/dL (1.6-2.4)
[2023-07-18 06:31] LABS: Albumin, Blood 3.4 g/dL (3.4-5.0); Anion Gap 9 mmol/L (6-16); Blood Urea Nitrogen 25 mg/dL (8-24); Bun/Creatinine Ratio 18.4 (12.0-20.0); CO2, Blood 23 mmol/L (21-32); Calcium, Blood 9.1 mg/dL (8.5-10.1); Chloride, Blood 107 mmol/L (98-108); Creatinine, Blood 1.36 mg/dL (0.40-1.00); Glomerular Filtration Rate 39 (60-); Glucose, Blood 131 mg/dL (70-99); Phosphorus, Blood 4.3 mg/dL (2.5-4.9); Potassium, Blood 3.4 mmol/L (3.5-5.5); Sodium, Blood 139 mmol/L (136-145)
[2023-07-18 08:23] VITALS: BP 131/95
--- NOTE | 2023-07-18 15:10 | NUR ---
SHIFT SUMMARY; PATIENT HAD UNEVENTFUL DAY. HER SISTER AND HER DAUGHTER COME TO VISIT. KASIA HAS PLEASANT AFFECT AND IS COOPERATIVE WITH CARE. SHE BECOMES EXTREMELY SHORT OF BREATH WITH MINIMAL EXERTION. RECOVERS QUICKLY. FAMILY WILL BE AVAILABLE WHEN PATIENT IS DISCHARGED TO HOME.
[2023-07-18 15:49] VITALS: BP 120/95
[2023-07-18 20:30] VITALS: BP 101/64
[2023-07-19 02:42] VITALS: BP 103/71
--- NOTE | 2023-07-19 03:57 | NUR ---
SHIFT SUMMARY. SHIFT HAS BEEN MOSTLY UNREMARKABLE. PT AOX4, PLEASANT, COOPERATIVE WITH CARE. INDEPENDENT WITHIN ROOM. NO PAIN REPORTED THIS SHIFT. SATTING WELL ON ROOM AIR. CALLS APPROPRIATELY FOR ASSISTANCE. ANTICIPATING DISCHARGE TODAY. BED LOCKED IN LOWEST POSITION. CALL LIGHT LEFT WITHIN REACH.
[2023-07-19 05:14] LABS: Calcium, Blood 8.9 mg/dL (8.5-10.1); Creatinine, Blood 1.2 mg/dL (0.40-1.00); Magnesium, Blood 2.2 mg/dL (1.6-2.4); Potassium, Blood 4.1 mmol/L (3.5-5.5)
[2023-07-19 07:25] VITALS: BP 99/58
[2023-07-19 07:58] VITALS: BP 129/108
[2023-07-19] MEDS ORDERED: FURO40 PO (11:14)
[2023-07-19] MEDS ORDERED: Lisinopril2.5 MG PO (11:15)
[2023-07-19] MEDS ORDERED: ATOR80 PO (11:16)
[2023-07-19] MEDS ORDERED: Vitamin D1000 UNI1 PO (11:16)
[2023-07-19] MEDS ORDERED: K-Dur20 MEQ PO (11:18)
--- NOTE | 2023-07-19 14:35 | NUR ---
PT AWAKE DURING SHIFT REPORT. UP INDEPENDENTLY IN AND TO BTHRM. PT ON RA, REPORTING IMPROVEMENT, AND STATING THAT SHE IS GOING HOME TODAY. DR MEJIA IN TO SEE PT AND DISCUSSED PLAN OF CARE. PT TO D/C TO HOME. PT IS PLEASANT AND CO-OP, VERY TALKATIVE. VISITORS TO . D/C INSTRUCTIONS VERBALIZED UNDERSTANDING. IV SITE D/C'D WNL'S. MEDS FAXED TO [facility] IN [place]. PT'S FREIND TO P/U BEFORE CLOSING. PT'S SON HERE TO SEE PT AND ASSIST OUT TO CAR. ALL BELONGINGS WENT WITH PT.
== END 2023-07-19 13:03 | disposition home or self-care (01) | DRG 291 ==
LOC: ER 08:25 → MEDS 11:56
PROVIDERS: Student in an Organized Health Care Education/Training Program; ADMIT Internal Medicine
DX: I13.0 Hypertensive heart and chronic kidney disease with heart failure and stage 1 through stage 4 chronic kidney disease, or unspecified chronic kidney disease (principal); I50.23 Acute on chronic systolic (congestive) heart failure; I25.10 Atherosclerotic heart disease of native coronary artery without angina pectoris; F32.A Depression, unspecified; N18.30 Chronic kidney disease, stage 3 unspecified; Z86.73 Personal history of transient ischemic attack (TIA), and cerebral infarction without residual deficits; Z91.018 Allergy to other foods; Z79.899 Other long term (current) drug therapy; Z79.891 Long term (current) use of opiate analgesic; Z79.82 Long term (current) use of aspirin; Z87.440 Personal history of urinary (tract) infections; Z98.1 Arthrodesis status; Z95.5 Presence of coronary angioplasty implant and graft; Z95.1 Presence of aortocoronary bypass graft; Z86.61 Personal history of infections of the central nervous system; Z60.2 Problems related to living alone
CPT/HCPCS: 36415; 71046; 80048; 80053; 80069; 83735; 83880; 84443; 84484; 85025; 85027; 93005; 93010; 96365; 96375; 99285-25; A9270; J1650; J1940; J3475

== ENCOUNTER 2023-09-20 08:19 | Emergency (ER) | payer OTHER ==
[~2023-09-20] VITALS: Ht 152.4 cm; Wt 63.5 kg
[~2023-09-20 08:19] MED LIST changes: +ATOR80 PO; +CELE200 PO; +FURO40 PO; +Isosorbide Dini30 MG PO; +K-Dur20 MEQ PO; +Lisinopril2.5 MG PO; +TYLENOL325 MG PO; +Vitamin D1000 UNI1 PO
[2023-09-20] MEDS ORDERED: CLOP75 PO (08:42)
[2023-09-20] MEDS ORDERED: OMEP20ER PO (08:42)
[2023-09-20 08:49] LABS: BASOPHILS ABSOLUTE AUTO 0.07 K/mm3 (0.00-0.23); BASOPHILS PERCENT AUTO 1 % (0-2); EOSINOPHILS PERCENT AUTO 1 % (0-6); Hematocrit 40.9 % (33.0-51.0); Hemoglobin 13.3 g/dL (11.5-16.0); IMMATURE GRAN ABSOLUTE AUTO 0.02 K/mm3 (0.00-0.10); IMMATURE GRAN PERCENT AUTO 0 % (0-1); LYMPHOCYTES ABSOLUTE AUTO 2.22 K/mm3 (0.84-5.20); LYMPHOCYTES PERCENT AUTO 26 % (21-46); MONOCYTES ABSOLUTE AUTO 0.63 K/mm3 (0.16-1.47); MONOCYTES PERCENT AUTO 7 % (4-13); Mean Corpuscular HGB Conc 32.5 g/dL (31.5-36.5); Mean Corpuscular Volume 86 fL (80-100); Mean Platelet Volume 12.1 fL (9.1-12.4); NEUTROPHILS ABSOLUTE AUTO 5.46 K/mm3 (1.96-9.15); NEUTROPHILS PERCENT AUTO 64 % (41-73); Platelet Count 229 K/mm3 (150-400); RDW Standard Deviation 46.8 fL (35.1-46.3); Red Blood Cell Count 4.75 M/mm3 (3.80-5.20)
[2023-09-20 09:07] LABS: Albumin, Blood 3.3 g/dL (3.4-5.0); Bilirubin, Total 1.3 mg/dL (0.1-1.0); Bun/Creatinine Ratio 23.2 (12.0-20.0); Calcium, Blood 8.7 mg/dL (8.5-10.1); Creatinine, Blood 1.12 mg/dL (0.40-1.00); Globulin, Blood 3.3 g/dL (2.2-4.0); Potassium, Blood 4.4 mmol/L (3.5-5.5); Total Protein, Blood 6.6 g/dL (6.4-8.2)
[2023-09-20 11:30] VITALS: BP 141/109
== END 2023-09-20 11:41 | disposition home or self-care (01) ==
LOC: ER 08:19
PROVIDERS: Emergency Medicine
DX: R10.30 Lower abdominal pain, unspecified (principal); N13.2 Hydronephrosis with renal and ureteral calculous obstruction; K55.1 Chronic vascular disorders of intestine; I13.0 Hypertensive heart and chronic kidney disease with heart failure and stage 1 through stage 4 chronic kidney disease, or unspecified chronic kidney disease; I50.20 Unspecified systolic (congestive) heart failure; N18.30 Chronic kidney disease, stage 3 unspecified; I25.10 Atherosclerotic heart disease of native coronary artery without angina pectoris; Z91.018 Allergy to other foods; Z79.02 Long term (current) use of antithrombotics/antiplatelets; Z79.82 Long term (current) use of aspirin; Z79.899 Other long term (current) drug therapy
CPT/HCPCS: 74177; 80053; 83690; 84484; 85025; 93005; 93010; 96361; 96374; 99284-25; J2405; J7030; Q9967

== ENCOUNTER 2023-10-18 04:28 | Inpatient (IN) | payer OTHER ==
[~2023-10-18] VITALS: Ht 157.5 cm; Wt 57.6 kg
[2023-10-18 04:48] LABS: BASOPHILS PERCENT AUTO 1 % (0-2); EOSINOPHILS ABSOLUTE AUTO 0.17 K/mm3 (0.00-0.68); EOSINOPHILS PERCENT AUTO 2 % (0-6); Hematocrit 46.6 % (33.0-51.0); Hemoglobin 14.8 g/dL (11.5-16.0); IMMATURE GRAN ABSOLUTE AUTO 0.04 K/mm3 (0.00-0.10); IMMATURE GRAN PERCENT AUTO 1 % (0-1); LYMPHOCYTES PERCENT AUTO 36 % (21-46); MONOCYTES ABSOLUTE AUTO 0.64 K/mm3 (0.16-1.47); MONOCYTES PERCENT AUTO 8 % (4-13); Mean Corpuscular HGB 27.2 pg (26.0-34.0); Mean Corpuscular HGB Conc 31.8 g/dL (31.5-36.5); Mean Corpuscular Volume 86 fL (80-100); Mean Platelet Volume 11.6 fL (9.1-12.4); NEUTROPHILS PERCENT AUTO 53 % (41-73); Platelet Count 195 K/mm3 (150-400); RDW Coefficient Variation 16.3 % (11.7-14.2); RDW Standard Deviation 49.6 fL (35.1-46.3); Red Blood Cell Count 5.44 M/mm3 (3.80-5.20); White Blood Cell Count 8.15 K/mm3 (4.00-11.30)
[2023-10-18 05:18] LABS: Albumin, Blood 3.5 g/dL (3.4-5.0); Albumin/Globulin Ratio 1.1 (0.8-1.8); Bilirubin, Total 1.1 mg/dL (0.1-1.0); Bun/Creatinine Ratio 18.2 (12.0-20.0); Creatinine, Blood 1.1 mg/dL (0.40-1.00); Globulin, Blood 3.2 g/dL (2.2-4.0); Magnesium, Blood 1.7 mg/dL (1.6-2.4); Potassium, Blood 2.9 mmol/L (3.5-5.5); Total Protein, Blood 6.7 g/dL (6.4-8.2)
[2023-10-18 05:52] LABS: Influenza A, PCR NEGATIVE (NEGATIVE); Influenza B, PCR NEGATIVE (NEGATIVE); Resp Syncytial Virus, PCR NEGATIVE (NEGATIVE); SARS-Cov-2 (COVID-19) PCR, MMC NEGATIVE (NEGATIVE)
[2023-10-18 11:45] VITALS: BP 117/90
[2023-10-18] MEDS ORDERED: METOPROLOL SUCC25 MG PO (12:23)
[2023-10-18 15:59] VITALS: BP 120/92
[2023-10-18 16:53] LABS: Bun/Creatinine Ratio 16.7 (12.0-20.0); Calcium, Blood 8.8 mg/dL (8.5-10.1); Creatinine, Blood 0.96 mg/dL (0.40-1.00); Potassium, Blood 4.1 mmol/L (3.5-5.5)
--- NOTE | 2023-10-18 18:59 | NUR ---
SHIFT SUMMARY: ASSUMED CARE OF PATIENT UPON HER TRANSFER FROM ED AT 1130 THIS MORNING. A&O X 4, PLEASANT. C/O POOR APPETITE X 1 WEEK; DAUGHTER ORLANDO IS REQUESTING PT HAVE EGD TO SEE IF ANYTHING CAN BE DONE WITH [facility]AT[facility] HERNIA. EXPLAINED TO HER THAT THAT WOULD LIKELY NOT HAPPEN THIS ADMISSION. APPETITE FOR DINNER WAS QUITE POOR, DIDN'T EVEN WANT JELLO. KCL ORDERED IN ER ALMOST FINISHED INFUSING (RAN IT SLOW SO SHE COULD TOLERATE IT). NO EVENTS ON TELE, SR/ST 90-110. ECHO PENDING. GETTING UP TO BR INDEPENDENTLY.
[2023-10-18 19:55] VITALS: BP 122/88
[2023-10-19 05:20] VITALS: BP 128/85
[2023-10-19 05:51] LABS: BASOPHILS ABSOLUTE AUTO 0.06 K/mm3 (0.00-0.23); BASOPHILS PERCENT AUTO 1 % (0-2); EOSINOPHILS ABSOLUTE AUTO 0.23 K/mm3 (0.00-0.68); EOSINOPHILS PERCENT AUTO 3 % (0-6); Hematocrit 39.9 % (33.0-51.0); Hemoglobin 12.9 g/dL (11.5-16.0); IMMATURE GRAN ABSOLUTE AUTO 0.02 K/mm3 (0.00-0.10); IMMATURE GRAN PERCENT AUTO 0 % (0-1); LYMPHOCYTES ABSOLUTE AUTO 2.95 K/mm3 (0.84-5.20); LYMPHOCYTES PERCENT AUTO 42 % (21-46); MONOCYTES ABSOLUTE AUTO 0.65 K/mm3 (0.16-1.47); MONOCYTES PERCENT AUTO 9 % (4-13); Mean Corpuscular HGB 27.2 pg (26.0-34.0); Mean Corpuscular HGB Conc 32.3 g/dL (31.5-36.5); Mean Corpuscular Volume 84 fL (80-100); Mean Platelet Volume 12.5 fL (9.1-12.4); NEUTROPHILS ABSOLUTE AUTO 3.15 K/mm3 (1.96-9.15); NEUTROPHILS PERCENT AUTO 45 % (41-73); Platelet Count 176 K/mm3 (150-400); RDW Coefficient Variation 15.9 % (11.7-14.2); RDW Standard Deviation 48.5 fL (35.1-46.3); Red Blood Cell Count 4.75 M/mm3 (3.80-5.20); White Blood Cell Count 7.06 K/mm3 (4.00-11.30)
[2023-10-19 06:43] LABS: Albumin, Blood 2.9 g/dL (3.4-5.0); Albumin/Globulin Ratio 1.1 (0.8-1.8); Bilirubin, Total 1.1 mg/dL (0.1-1.0); Calcium, Blood 8.4 mg/dL (8.5-10.1); Creatinine, Blood 1.07 mg/dL (0.40-1.00); Globulin, Blood 2.7 g/dL (2.2-4.0); Magnesium, Blood 1.6 mg/dL (1.6-2.4); Phosphorus, Blood 3.6 mg/dL (2.5-4.9); Potassium, Blood 3.8 mmol/L (3.5-5.5); Total Protein, Blood 5.6 g/dL (6.4-8.2)
--- NOTE | 2023-10-19 06:47 | NUR ---
REPORT RECEIVED VERIFIED A/O VERY PLEASENT PT HAD GOOD NIGHT NO EVENTS NOTED PT ABLE TO MAKE NEED KNOWN, DID A LOT OF EDU CONCERNING HEART AND FLUIDS BECAUSE OF ELEVATED BNP. WILL CINT TO MONITOR
[2023-10-19 16:44] VITALS: BP 93/69
--- NOTE | 2023-10-19 17:27 | NUR ---
SHIFT SUMMARY NO ACUTE CHANGES THIS SHIFT. CALL LIGHT WITHIN REACH AND PT ABLE TO MAKE NEEDS KNOWN.
[2023-10-19 18:20] VITALS: BP 110/74
[2023-10-19 19:14] VITALS: BP 110/76
--- NOTE | 2023-10-19 19:34 | NUR ---
AWAKE. CHEERFUL AFFECT. DENIES PAIN AND LOSS OF FEELING. CALL LIGHT IN REACH
[2023-10-20 03:03] VITALS: BP 104/85
--- NOTE | 2023-10-20 03:12 | NUR ---
LANDCARE OFFICER SUMMARY VSS. MED TELE SINUS RHYTHM AT 88. UP AD JANIE. VOICED LEG CRAMPS, REVEIVED TYLENOL, SEE MAR FOR DETAILS. NOTE EDEMA OF BLE. HASA BEEN RESTING QUIETLY WITH FEW INTERRUPTIONS SINCE. CALL LIGHT IN REACH. RAILS UP X 2 FOR SAFETY. WILL CONTINUE TO MONITOR
[2023-10-20 05:53] LABS: Bun/Creatinine Ratio 12.9 (12.0-20.0); Calcium, Blood 8.4 mg/dL (8.5-10.1); Creatinine, Blood 1.16 mg/dL (0.40-1.00)
[2023-10-20 07:56] VITALS: BP 112/89
[2023-10-20] MEDS ORDERED: POTA10T PO (13:53)
[2023-10-20] MEDS ORDERED: FURO40 PO (13:53)
[2023-10-20] MEDS ORDERED: JARDIANCE10 MG PO (13:54)
--- NOTE | 2023-10-20 15:52 | NUR ---
DISCHARGE NOTE PT DISCHARGED TO HOME, PICKED UP BY HER SON. IV REMOVED, TELE RETURNED. DISCHARGE INFORMATION AND EDUCATION PROVIDED. MEDICATIONS FAXED TO THE PHARMACY OF HER CHOICE. PERSONAL BELONGINGS RETURNED.
== END 2023-10-20 14:54 | disposition home health service (06) | DRG 291 ==
LOC: ER 04:28 → MEDS 04:29
PROVIDERS: Family Medicine; Student in an Organized Health Care Education/Training Program; ADMIT Internal Medicine
DX: I13.0 Hypertensive heart and chronic kidney disease with heart failure and stage 1 through stage 4 chronic kidney disease, or unspecified chronic kidney disease (principal); I50.23 Acute on chronic systolic (congestive) heart failure; N18.30 Chronic kidney disease, stage 3 unspecified; F32.A Depression, unspecified; I25.10 Atherosclerotic heart disease of native coronary artery without angina pectoris; E87.6 Hypokalemia; R10.9 Unspecified abdominal pain; I49.3 Ventricular premature depolarization; I27.20 Pulmonary hypertension, unspecified; E83.42 Hypomagnesemia; Z91.018 Allergy to other foods; Z79.899 Other long term (current) drug therapy; Z79.891 Long term (current) use of opiate analgesic; Z79.82 Long term (current) use of aspirin; Z86.73 Personal history of transient ischemic attack (TIA), and cerebral infarction without residual deficits; Z87.440 Personal history of urinary (tract) infections; Z98.1 Arthrodesis status; Z95.5 Presence of coronary angioplasty implant and graft; Z11.52 Encounter for screening for COVID-19; Z95.1 Presence of aortocoronary bypass graft
CPT/HCPCS: 0241U; 36415; 71046; 74018; 80048; 80053; 83690; 83735; 83880; 84100; 84484; 85025; 93005; 93010; 93306; 94760; 96361; 96365; 96366; 96367; 96372; 96375; 96376; 97110; 97110-CQ; 97112; 97116-CQ; 97161; 97165; 99285-25; A9270; G0378; J1644; J1940; J2060; J2405; J3475; J3480; J7050; J7120

== ENCOUNTER 2024-02-01 10:21 | Inpatient (IN) | payer OTHER ==
[~2024-02-01] VITALS: Ht 152.4 cm; Wt 52.1 kg
[~2024-02-01 10:21] MED LIST changes: +JARDIANCE10 MG PO; +METOPROLOL SUCC25 MG PO; +POTA10T PO
[2024-02-01 10:46] LABS: BASOPHILS ABSOLUTE AUTO 0.06 K/mm3 (0.00-0.23); BASOPHILS PERCENT AUTO 1 % (0-2); EOSINOPHILS ABSOLUTE AUTO 0.25 K/mm3 (0.00-0.68); EOSINOPHILS PERCENT AUTO 3 % (0-6); Hematocrit 43.4 % (33.0-51.0); Hemoglobin 14.6 g/dL (11.5-16.0); IMMATURE GRAN ABSOLUTE AUTO 0.01 K/mm3 (0.00-0.10); IMMATURE GRAN PERCENT AUTO 0 % (0-1); LYMPHOCYTES ABSOLUTE AUTO 2.52 K/mm3 (0.84-5.20); LYMPHOCYTES PERCENT AUTO 34 % (21-46); MONOCYTES ABSOLUTE AUTO 0.51 K/mm3 (0.16-1.47); MONOCYTES PERCENT AUTO 7 % (4-13); Mean Corpuscular HGB 29.4 pg (26.0-34.0); Mean Corpuscular HGB Conc 33.6 g/dL (31.5-36.5); Mean Corpuscular Volume 87 fL (80-100); Mean Platelet Volume 10.4 fL (9.1-12.4); NEUTROPHILS ABSOLUTE AUTO 4.14 K/mm3 (1.96-9.15); NEUTROPHILS PERCENT AUTO 55 % (41-73); Platelet Count 198 K/mm3 (150-400); RDW Coefficient Variation 17.4 % (11.7-14.2); RDW Standard Deviation 55.8 fL (35.1-46.3); Red Blood Cell Count 4.97 M/mm3 (3.80-5.20); White Blood Cell Count 7.49 K/mm3 (4.00-11.30)
[2024-02-01 10:57] LABS: Albumin, Blood 3.2 g/dL (3.4-5.0); Albumin/Globulin Ratio 1.1 (0.8-1.8); Bilirubin, Total 2.1 mg/dL (0.1-1.0); Bun/Creatinine Ratio 15.4 (12.0-20.0); Calcium, Blood 9.1 mg/dL (8.5-10.1); Creatinine, Blood 0.91 mg/dL (0.40-1.00); Globulin, Blood 2.9 g/dL (2.2-4.0); Potassium, Blood 3.8 mmol/L (3.5-5.5); Total Protein, Blood 6.1 g/dL (6.4-8.2)
[2024-02-01] MEDS ORDERED: Furosemide 10 MG/ML 4ML Vial IV ONE (13:00)
[2024-02-01] MEDS ORDERED: OMEP20ER PO (14:36)
[2024-02-01] MEDS ORDERED: FAMO40 PO (14:36)
[2024-02-01] MEDS ORDERED: POTA10T PO (14:37)
[2024-02-01] MEDS ORDERED: DIPATR PO (14:41)
--- NOTE | 2024-02-01 15:39 | NUR ---
pt arrived to 362 via gurney from ED, pt is a/ox4, pleasant and coopertive with care, follows commands well, denies pain, states she is sob with any activity, she does get very dyspnic just moving to the bsc, placed her on 2 liters for comfort, lungs are very dim t/o, resp even and labored, no cough noted, hrr, b/l leg edema, not in feet, pp faint, ext are cold to touch, piv to lac, site is clear and patent, btx4, abd flat soft very tender in right lower quad, has been going on for a few months, voids without diff via bsc, skin has rash to umbilical area and buttocks crack, no open but angry red, she reports has been itching and burning, maew, but very weak and a bit unstable on feet, needs one person assist, rui, oriented to room layout and call system. call light in reach.
[2024-02-01] MEDS ORDERED: Acetaminophen 325 MG TABLET PO PRN (16:30)
[2024-02-01] MEDS ORDERED: Nitroglycerin 0.4 MG SUBL SL PRN (16:30)
[2024-02-01] MEDS ORDERED: Furosemide 10 MG/ML 4ML Vial IV SCH (18:00)
--- NOTE | 2024-02-01 18:20 | NUR ---
pt very frail, extremely poor appetite with limitations on what she is willing to eat, finally agreed to have some beef broth, placed egg crate on bed due to high risk for breakdown, call light in reach.
[2024-02-01 20:09] VITALS: BP 109/87
[2024-02-01] MEDS ORDERED: Nystatin 100,000 Unit/GM CREAM 15 GM TOP SCH (21:00)
[2024-02-01] MEDS ORDERED: Melatonin 5 MG Tablet PO PRN (21:55)
[2024-02-02 03:04] VITALS: BP 122/77
--- NOTE | 2024-02-02 05:40 | NUR ---
SHIFT SUMMARY PT IS A&OX4, PLEASANT AND APPRECIATIVE. VSS ON 2L NC. DAY RN PLACED PT ON OXYGEN D/T DYSPNEA WITH EXURTION. PT DENIES PAIN. ON A 2 GM Na RESTRICTED DIET, POOR PO INTAKE. PT STATES SHE STRUGGLES WITH SWALLOWING, FEELS LIKE FOOD GETS STUCK. PT STATES A 50 LB WEIGHT LOSS IN A YEAR. PT STATES SHE HAS A GI CONSULT IN [place] THIS WEEK, BUT WILL NEED TO CANCEL D/T NO TRANSPORTATION. BLE (NOT FEET) +3 EDEMA. VOIDING IN BSC, INDEPENDENTLY. HAS URGENCY WITH SOME INCONTINENCE, PULL-UP IN PLACE. BED IN LOWEST POSITION, CALL LIGHT WITHIN REACH.
[2024-02-02 07:39] VITALS: BP 119/85
[2024-02-02] MEDS ORDERED: Citalopram Hydrobromide 10 MG TAB PO SCH (09:00)
[2024-02-02] MEDS ORDERED: Famotidine 20 MG Tab PO SCH (09:00)
[2024-02-02] MEDS ORDERED: Enoxaparin 40 MG/0.4 ML SYR SC SCH (09:00)
[2024-02-02] MEDS ORDERED: Metoprolol Succinate 25 MG TABCR PO SCH (09:00)
[2024-02-02] MEDS ORDERED: Clopidogrel Bisulfate 75 MG Tab PO SCH (09:00)
[2024-02-02] MEDS ORDERED: Aspirin 81 MG TabEC PO SCH (09:00)
[2024-02-02] MEDS ORDERED: Ezetimibe 10 MG Tab PO SCH (09:00)
[2024-02-02] MEDS ORDERED: Potassium Chloride 10 Meq Tablet SA PO SCH (09:00)
[2024-02-02] MEDS ORDERED: Furosemide 10 MG / ML 2ML Vial IV SCH ×2 (12:00→20:00)
[2024-02-02] MEDS ORDERED: Lisinopril 5 MG Tab PO SCH (13:00)
[2024-02-02] MEDS ORDERED: Furosemide 10 MG / ML 2ML Vial IV ONE (13:50)
[2024-02-02 15:06] LABS: Bun/Creatinine Ratio 14.6 (12.0-20.0); Calcium, Blood 9.3 mg/dL (8.5-10.1); Creatinine, Blood 0.89 mg/dL (0.40-1.00); Potassium, Blood 3.4 mmol/L (3.5-5.5)
[2024-02-02 15:43] VITALS: BP 122/67
--- NOTE | 2024-02-02 16:25 | NUR ---
SHIFT SUMMARY PATIENT IS ALERT AND ORIENT TIMES 3, SOMETIMES FORGETFUL. PATIENT WAS DIZZY, EXPERIENCE LOW BLOOD PRESSURE, AFTER RECIEVING 40 MG LASIX. PROVIDED FLUIDS AND BLOOD PRESSURE RETURNED TO NORMAL. PATIENT WAS ABLE TO AMBULATE WITH NO DIZZINESS. PATIENT RECIEVED AN ORDER FOR LASIX 60 MG AT NOON CALLED PHYSICIAN AND THE DOCTOR D/C ORDER. PATIENT STATED SEVERAL PEOPLE HAVE CALLED HER TO OBTAIN HER CREDIT CARD INFORMATION. ADVISED HER TO HAVE HER SON TAKE CARE OF FINANCIAL INFORMATION.
--- NOTE | 2024-02-02 16:45 | NUR ---
PATIENT HAS PITTING EDEMA IN LEGS AND FEET. 2 + PITTING EDEMA IN FEET. PATIENT HEART SOUNDS WERE STRONG AND VERY LITTLE FLUID WAS NOTED IN HER LUNGS.
[2024-02-02 19:48] VITALS: BP 114/73
[2024-02-02] MEDS ORDERED: Spironolactone 25 MG Tab PO SCH (21:00)
[2024-02-03 03:02] VITALS: BP 117/69
[2024-02-03] MEDS ORDERED: Ondansetron 4 MG TAB PO PRN (03:50)
[2024-02-03 04:58] LABS: BASOPHILS ABSOLUTE AUTO 0.07 K/mm3 (0.00-0.23); BASOPHILS PERCENT AUTO 1 % (0-2); EOSINOPHILS ABSOLUTE AUTO 0.23 K/mm3 (0.00-0.68); EOSINOPHILS PERCENT AUTO 4 % (0-6); Hematocrit 43.5 % (33.0-51.0); Hemoglobin 15.2 g/dL (11.5-16.0); IMMATURE GRAN ABSOLUTE AUTO 0.03 K/mm3 (0.00-0.10); IMMATURE GRAN PERCENT AUTO 1 % (0-1); LYMPHOCYTES ABSOLUTE AUTO 1.48 K/mm3 (0.84-5.20); LYMPHOCYTES PERCENT AUTO 22 % (21-46); MONOCYTES ABSOLUTE AUTO 0.64 K/mm3 (0.16-1.47); MONOCYTES PERCENT AUTO 10 % (4-13); Mean Corpuscular HGB 29.4 pg (26.0-34.0); Mean Corpuscular HGB Conc 34.9 g/dL (31.5-36.5); Mean Corpuscular Volume 84 fL (80-100); Mean Platelet Volume 10.7 fL (9.1-12.4); NEUTROPHILS ABSOLUTE AUTO 4.18 K/mm3 (1.96-9.15); NEUTROPHILS PERCENT AUTO 63 % (41-73); Platelet Count 188 K/mm3 (150-400); RDW Coefficient Variation 17.1 % (11.7-14.2); RDW Standard Deviation 52.1 fL (35.1-46.3); Red Blood Cell Count 5.17 M/mm3 (3.80-5.20); White Blood Cell Count 6.63 K/mm3 (4.00-11.30)
[2024-02-03 05:38] LABS: Bun/Creatinine Ratio 13.7 (12.0-20.0); Calcium, Blood 9.2 mg/dL (8.5-10.1); Creatinine, Blood 0.88 mg/dL (0.40-1.00); Potassium, Blood 2.8 mmol/L (3.5-5.5)
--- NOTE | 2024-02-03 05:59 | NUR ---
SHIFT SUMMARY PT IS A&OX4, PLEASANT AND APPRECIATIVE OF CARES. NO ACUTE CHANGES THIS SHIFT. VSS ON RA. MEDICATED PT ONCE FOR MONIQUE, OTHERWISE DENIES PAIN. ON A 2 GM Na RESTRICTED DIET, POOR PO INTAKE. BLE +2 EDEMA. VOIDING IN BSC, OR IN THE TOILET IN BR, INDEPENDENTLY. GOOD URINE OUTPUT AFTER HS LASIX. HAS URGENCY WITH SOME INCONTINENCE, PULL-UP IN PLACE. PT STATES SHE HAS HAD 5 LOOSE BM'S T/O DAYSHIFT. BED IN LOWEST POSITION, CALL LIGHT WITHIN REACH.
[2024-02-03] MEDS ORDERED: Potassium Chloride 40 MEQ in NS 250 ML IV ONE (07:35)
[2024-02-03 07:42] VITALS: BP 110/74
[2024-02-03] MEDS ORDERED: NS 250 ML IV PRN (08:50)
[2024-02-03] MEDS ORDERED: Potassium Chloride 20 MEQ TabCR PO SCH (09:05)
[2024-02-03] MEDS ORDERED: Lisinopril2.5 MG PO (13:44)
--- NOTE | 2024-02-03 13:46 | NUR ---
Upon receiving a referral for spiritual care, I visited the patient. Patient is very conversive and immediately shares about the recent of her spouse, Lopez, who used to be a volunteer at the hospital. She shares about her life prior to meeting Lopez and then life after meeting him. 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 She talks about her spiritual journey beginning with her childhood growing up in [place] in [place] and then ending up at the [employer] in [place]. She attended there for yrs but is now searching for the new next [facility] family to be a part of. She tells me about her medical issues and her fears about what is happening with her. She tells me that she has been working of her service and she just has a couple more details to work out and it will be completed. She talks about her weight loss and the multi organ troubles she is having. She is delighted that I would say a prayer for her strength and recovery. I provided therapeutic listening and prayer. Patient showed signs of greater peace. I will continue to remain available to patient and family.
--- NOTE | 2024-02-03 16:29 | NUR ---
DISCHARGE INSTRUCTIONS COMPLETED AND DISCUSSED WITH PT EXPRESSING UNDERSTANDING. SCRIPT FAXED TO [facility]. FRIEND HERE TO PICK PT UP. TO [facility] VIA W/C
--- NOTE | 2024-02-03 17:34 | NUR ---
PT IS ALERT AND ORIENTED TIMES THREE . HEART SOUNDS S1 AND S2 NOTED. STRONG RADIAL AND HEART SOUNDS NOTED. NO RESPIRATORY DISTRESS NOTED. EDEMA IN HER LEGS AND FEET. 2+ PITTING EDEMA IN BOTH FEET. SHE HAS POOR APPETITE, ENCOURAGE PATIENT TO DRINK MORE FLUIDS AND EAT MORE OF HER FOOD.
== END 2024-02-03 16:01 | disposition home or self-care (01) | DRG 291 ==
LOC: ER 10:21 → MEDS 10:22
PROVIDERS: Family Medicine; Student in an Organized Health Care Education/Training Program; ADMIT Hospitalist
DX: I13.0 Hypertensive heart and chronic kidney disease with heart failure and stage 1 through stage 4 chronic kidney disease, or unspecified chronic kidney disease (principal); I50.23 Acute on chronic systolic (congestive) heart failure; I25.10 Atherosclerotic heart disease of native coronary artery without angina pectoris; E87.6 Hypokalemia; N18.30 Chronic kidney disease, stage 3 unspecified; F32.A Depression, unspecified; I25.5 Ischemic cardiomyopathy; Z95.1 Presence of aortocoronary bypass graft; Z95.5 Presence of coronary angioplasty implant and graft; Z91.148 Patient's other noncompliance with medication regimen for other reason; Z86.73 Personal history of transient ischemic attack (TIA), and cerebral infarction without residual deficits; Z87.440 Personal history of urinary (tract) infections; Z98.1 Arthrodesis status; Z91.018 Allergy to other foods; Z79.899 Other long term (current) drug therapy; Z79.82 Long term (current) use of aspirin
CPT/HCPCS: 36415; 71045; 80048; 80053; 83735; 83880; 84132; 85025; 93005; 93010; 96372; 96374; 96376; 97116; 97162; 97530; 99285-25; A9270; G0378; J1650; J1940; J3480; J7050

== ENCOUNTER 2024-03-19 13:31 | Emergency (ER) | payer OTHER ==
[~2024-03-19] VITALS: Ht 157.5 cm; Wt 48.1 kg
[~2024-03-19 13:31] MED LIST changes: +DIPATR PO; +FAMO40 PO
[2024-03-19 14:21] LABS: BASOPHILS ABSOLUTE AUTO 0.08 K/mm3 (0.00-0.23); BASOPHILS PERCENT AUTO 1 % (0-2); EOSINOPHILS ABSOLUTE AUTO 0.17 K/mm3 (0.00-0.68); EOSINOPHILS PERCENT AUTO 2 % (0-6); Hematocrit 39.9 % (33.0-51.0); Hemoglobin 13.7 g/dL (11.5-16.0); IMMATURE GRAN ABSOLUTE AUTO 0.05 K/mm3 (0.00-0.10); IMMATURE GRAN PERCENT AUTO 1 % (0-1); LYMPHOCYTES ABSOLUTE AUTO 1.91 K/mm3 (0.84-5.20); LYMPHOCYTES PERCENT AUTO 19 % (21-46); MONOCYTES ABSOLUTE AUTO 0.78 K/mm3 (0.16-1.47); MONOCYTES PERCENT AUTO 8 % (4-13); Mean Corpuscular HGB 30.9 pg (26.0-34.0); Mean Corpuscular HGB Conc 34.3 g/dL (31.5-36.5); Mean Corpuscular Volume 90 fL (80-100); Mean Platelet Volume 10.5 fL (9.1-12.4); NEUTROPHILS ABSOLUTE AUTO 6.84 K/mm3 (1.96-9.15); NEUTROPHILS PERCENT AUTO 70 % (41-73); Platelet Count 228 K/mm3 (150-400); RDW Coefficient Variation 16.7 % (11.7-14.2); RDW Standard Deviation 54.8 fL (35.1-46.3); Red Blood Cell Count 4.43 M/mm3 (3.80-5.20); White Blood Cell Count 9.83 K/mm3 (4.00-11.30)
[2024-03-19] MEDS ORDERED: LIPITOR80 MG PO (14:30)
[2024-03-19] MEDS ORDERED: PLAVIX75 MG PO (14:31)
[2024-03-19] MEDS ORDERED: HYDHCL25 PO (14:35)
[2024-03-19] MEDS ORDERED: ONDA4ODT MM (14:36)
[2024-03-19 14:39] LABS: Albumin, Blood 3.3 g/dL (3.4-5.0); Bilirubin, Total 1.2 mg/dL (0.1-1.0); Bun/Creatinine Ratio 20.9 (12.0-20.0); Calcium, Blood 8.7 mg/dL (8.5-10.1); Creatinine, Blood 0.91 mg/dL (0.40-1.00); Globulin, Blood 3.3 g/dL (2.2-4.0); Total Protein, Blood 6.6 g/dL (6.4-8.2)
[2024-03-19] MEDS ORDERED: Morphine Sulfate 4 MG/1 ML Injection IV ONE (14:55)
[2024-03-19] MEDS ORDERED: Furosemide 10 MG/ML 4ML Vial IV ONE (16:05)
[2024-03-19 16:45] VITALS: BP 90/62
== END 2024-03-19 17:04 | disposition home or self-care (01) ==
LOC: ER 13:31
PROVIDERS: Emergency Medicine
DX: I13.0 Hypertensive heart and chronic kidney disease with heart failure and stage 1 through stage 4 chronic kidney disease, or unspecified chronic kidney disease (principal); I50.21 Acute systolic (congestive) heart failure; N18.30 Chronic kidney disease, stage 3 unspecified; M54.50 Low back pain, unspecified; I25.10 Atherosclerotic heart disease of native coronary artery without angina pectoris
CPT/HCPCS: 71046; 71260; 80053; 83880; 84484; 85025; 93005; 93010; 96374-59; 96375-59; 99285-25; J1940; J2270; Q9967

== ENCOUNTER 2024-06-02 12:00 | Emergency (ER) | payer OTHER ==
[~2024-06-02] VITALS: Ht 165.1 cm; Wt 52.2 kg
[~2024-06-02 12:00] MED LIST changes: +LIPITOR80 MG PO; +ONDA4ODT MM; +PLAVIX75 MG PO
[2024-06-02] MEDS ORDERED: ELIQUIS5 M2 PO (12:39)
[2024-06-02] MEDS ORDERED: ALBU2.5V5 INH (12:39)
[2024-06-02] MEDS ORDERED: BISA10S PR (12:40)
[2024-06-02] MEDS ORDERED: LACO50TA2 PO (12:42)
[2024-06-02] MEDS ORDERED: LIDO700A20 TOP (12:42)
[2024-06-02] MEDS ORDERED: MAGNESIUM OXID500 MG PO (12:43)
[2024-06-02] MEDS ORDERED: MELA3 PO (12:43)
[2024-06-02] MEDS ORDERED: Ativan1 MG PO (12:43)
[2024-06-02] MEDS ORDERED: MIRT15 PO (12:44)
[2024-06-02] MEDS ORDERED: MULVITA PO (12:45)
[2024-06-02] MEDS ORDERED: NITR.4SL SL (12:45)
[2024-06-02 13:14] LABS: BASOPHILS ABSOLUTE AUTO 0.04 K/mm3 (0.00-0.23); BASOPHILS PERCENT AUTO 1 % (0-2); EOSINOPHILS ABSOLUTE AUTO 0.15 K/mm3 (0.00-0.68); EOSINOPHILS PERCENT AUTO 2 % (0-6); Hematocrit 44.5 % (33.0-51.0); Hemoglobin 14.7 g/dL (11.5-16.0); IMMATURE GRAN ABSOLUTE AUTO 0.02 K/mm3 (0.00-0.10); IMMATURE GRAN PERCENT AUTO 0 % (0-1); LYMPHOCYTES PERCENT AUTO 37 % (21-46); MONOCYTES ABSOLUTE AUTO 0.71 K/mm3 (0.16-1.47); MONOCYTES PERCENT AUTO 9 % (4-13); Mean Corpuscular HGB 28.8 pg (26.0-34.0); Mean Corpuscular Volume 87 fL (80-100); Mean Platelet Volume 10.4 fL (9.1-12.4); NEUTROPHILS ABSOLUTE AUTO 3.96 K/mm3 (1.96-9.15); NEUTROPHILS PERCENT AUTO 52 % (41-73); Platelet Count 220 K/mm3 (150-400); RDW Coefficient Variation 15.3 % (11.7-14.2); RDW Standard Deviation 48.6 fL (35.1-46.3); White Blood Cell Count 7.68 K/mm3 (4.00-11.30)
[2024-06-02 13:14] LABS: Albumin, Blood 3.1 g/dL (3.4-5.0); Albumin/Globulin Ratio 0.7 (0.8-1.8); Bilirubin, Total 1.3 mg/dL (0.1-1.0); Bun/Creatinine Ratio 17.4 (12.0-20.0); Calcium, Blood 9.2 mg/dL (8.5-10.1); Creatinine, Blood 0.92 mg/dL (0.40-1.00); Globulin, Blood 4.2 g/dL (2.2-4.0); Magnesium, Blood 2.3 mg/dL (1.6-2.4); Total Protein, Blood 7.3 g/dL (6.4-8.2)
[2024-06-02 13:31] LABS: International Normalized Ratio 1.44
[2024-06-02 17:00] VITALS: BP 111/72
[2024-06-03] MEDS ORDERED: K-TAB ER20 ME1 PO (18:58)
[2024-06-04] MEDS ORDERED: BISA10S PR (16:56)
[2024-06-04] MEDS ORDERED: MIRALAX1714 PO (16:56)
== END 2024-06-02 19:44 | disposition home or self-care (01) ==
LOC: ER 12:00
PROVIDERS: Student in an Organized Health Care Education/Training Program
DX: K62.5 Hemorrhage of anus and rectum (principal); R94.31 Abnormal electrocardiogram [ECG] [EKG]; I13.0 Hypertensive heart and chronic kidney disease with heart failure and stage 1 through stage 4 chronic kidney disease, or unspecified chronic kidney disease; I50.20 Unspecified systolic (congestive) heart failure; N18.30 Chronic kidney disease, stage 3 unspecified; Z86.73 Personal history of transient ischemic attack (TIA), and cerebral infarction without residual deficits; Z79.82 Long term (current) use of aspirin; Z79.02 Long term (current) use of antithrombotics/antiplatelets; Z79.899 Other long term (current) drug therapy; Z91.018 Allergy to other foods
CPT/HCPCS: 36415; 74177; 80053; 82272; 83735; 84484; 85025; 85610; 85730; 93005; 93010; 99285-25; Q9967

== ENCOUNTER 2024-06-03 13:07 | Emergency (ER) | payer OTHER ==
[~2024-06-03] VITALS: Ht 157.5 cm; Wt 49.9 kg
[~2024-06-03 13:07] MED LIST changes: +ALBU2.5V5 INH; +Ativan1 MG PO; +BISA10S PR; +ELIQUIS5 M2 PO; +LACO50TA2 PO; +LIDO700A20 TOP; +MAGNESIUM OXID500 MG PO; +MELA3 PO; +MIRT15 PO; +MULVITA PO
[2024-06-03 14:39] LABS: BASOPHILS ABSOLUTE AUTO 0.07 K/mm3 (0.00-0.23); BASOPHILS PERCENT AUTO 1 % (0-2); EOSINOPHILS ABSOLUTE AUTO 0.16 K/mm3 (0.00-0.68); EOSINOPHILS PERCENT AUTO 2 % (0-6); Hematocrit 43.4 % (33.0-51.0); Hemoglobin 14.1 g/dL (11.5-16.0); IMMATURE GRAN ABSOLUTE AUTO 0.02 K/mm3 (0.00-0.10); IMMATURE GRAN PERCENT AUTO 0 % (0-1); LYMPHOCYTES ABSOLUTE AUTO 2.27 K/mm3 (0.84-5.20); LYMPHOCYTES PERCENT AUTO 34 % (21-46); MONOCYTES ABSOLUTE AUTO 0.63 K/mm3 (0.16-1.47); MONOCYTES PERCENT AUTO 9 % (4-13); Mean Corpuscular HGB 28.6 pg (26.0-34.0); Mean Corpuscular HGB Conc 32.5 g/dL (31.5-36.5); Mean Corpuscular Volume 88 fL (80-100); Mean Platelet Volume 10.9 fL (9.1-12.4); NEUTROPHILS ABSOLUTE AUTO 3.56 K/mm3 (1.96-9.15); NEUTROPHILS PERCENT AUTO 53 % (41-73); Platelet Count 239 K/mm3 (150-400); RDW Coefficient Variation 15.9 % (11.7-14.2); RDW Standard Deviation 50.6 fL (35.1-46.3); Red Blood Cell Count 4.93 M/mm3 (3.80-5.20); White Blood Cell Count 6.71 K/mm3 (4.00-11.30)
[2024-06-03 15:13] LABS: Albumin, Blood 3.1 g/dL (3.4-5.0); Albumin/Globulin Ratio 0.8 (0.8-1.8); Bilirubin, Total 1.2 mg/dL (0.1-1.0); Bun/Creatinine Ratio 18.8 (12.0-20.0); Calcium, Blood 9.3 mg/dL (8.5-10.1); Creatinine, Blood 1.12 mg/dL (0.40-1.00); Globulin, Blood 3.9 g/dL (2.2-4.0); Magnesium, Blood 2.4 mg/dL (1.6-2.4); Potassium, Blood 3.2 mmol/L (3.5-5.5)
[2024-06-03 15:43] LABS: Source, Urine Clean Catch
[2024-06-03 15:47] LABS: Appearance, Urine Hazy (Clear); Bilirubin, Urine Neg (Neg); Blood, Urine 5+ (Neg); Color, Urine Yellow (P-Yellow); Glucose Qualitative, Urine Neg (Neg); Ketones, Urine Neg (Neg); Leukocyte Esterase, Urine 1+ (Neg); Nitrite, Urine Neg (Neg); Protein, Urine 1+ (Neg); Specific Gravity, Urine 1.015 (1.003-1.022); Urobilinogen, Urine NORM (Normal)
[2024-06-03 15:53] LABS: Yeast/Fungi Urine Many /hpf
[2024-06-03 15:54] LABS: Bacteria Mod /hpf; Red Blood Cells, Urine 25-50 /hpf (0-2)
[2024-06-03 15:55] LABS: Squamous Epithelial Cells Rare /hpf (Few)
[2024-06-03] MEDS ORDERED: Potassium Chloride 20 MEQ TabCR PO ONE (16:05)
[2024-06-03] MEDS ORDERED: Milk 150ML/Molasses 150ML (300ML Total) PR ONE (16:20)
[2024-06-03] MEDS ORDERED: Potassium Chloride 20 MEQ/15 ML UDC PO ONE (16:55)
[2024-06-03 17:00] VITALS: BP 117/80
[2024-06-03] MEDS ORDERED: K-TAB ER20 ME1 PO (18:58)
[2024-06-04] MEDS ORDERED: ATOR80 PO (10:07)
[2024-06-04] MEDS ORDERED: CEPH500 PO (10:09)
[2024-06-04] MEDS ORDERED: ELIQUIS5 M3 PO (10:09)
[2024-06-04] MEDS ORDERED: ONDA4ODT SL (10:10)
[2024-06-04] MEDS ORDERED: BISA10S PR ×2 (16:56)
[2024-06-04] MEDS ORDERED: MIRALAX1714 PO ×2 (16:56)
== END 2024-06-03 19:16 | disposition short-term general hospital (02) ==
LOC: ER 13:07
PROVIDERS: Emergency Medicine
DX: E87.6 Hypokalemia (principal); K59.00 Constipation, unspecified; R53.1 Weakness; I13.0 Hypertensive heart and chronic kidney disease with heart failure and stage 1 through stage 4 chronic kidney disease, or unspecified chronic kidney disease; I50.20 Unspecified systolic (congestive) heart failure; N18.30 Chronic kidney disease, stage 3 unspecified; Z86.73 Personal history of transient ischemic attack (TIA), and cerebral infarction without residual deficits; Z79.82 Long term (current) use of aspirin; Z79.899 Other long term (current) drug therapy; Z79.02 Long term (current) use of antithrombotics/antiplatelets; Z91.018 Allergy to other foods
CPT/HCPCS: 74022; 80053; 81001; 83690; 83735; 83880; 84484; 85025; 87077; 87086; 87186; 93005; 93010; 99285-25; A9270; P9612

== ENCOUNTER 2024-06-04 09:14 | Emergency (ER) | payer OTHER ==
[~2024-06-04] VITALS: Ht 152.4 cm; Wt 40.8 kg
[~2024-06-04 09:14] MED LIST changes: +K-TAB ER20 ME1 PO
[2024-06-04] MEDS ORDERED: ATOR80 PO (10:07)
[2024-06-04] MEDS ORDERED: ELIQUIS5 M3 PO (10:09)
[2024-06-04] MEDS ORDERED: CEPH500 PO (10:09)
[2024-06-04] MEDS ORDERED: ONDA4ODT SL (10:10)
[2024-06-04 10:25] LABS: BASOPHILS ABSOLUTE AUTO 0.08 K/mm3 (0.00-0.23); BASOPHILS PERCENT AUTO 1 % (0-2); EOSINOPHILS ABSOLUTE AUTO 0.24 K/mm3 (0.00-0.68); EOSINOPHILS PERCENT AUTO 4 % (0-6); Hemoglobin 14.5 g/dL (11.5-16.0); IMMATURE GRAN ABSOLUTE AUTO 0.01 K/mm3 (0.00-0.10); IMMATURE GRAN PERCENT AUTO 0 % (0-1); LYMPHOCYTES ABSOLUTE AUTO 2.48 K/mm3 (0.84-5.20); LYMPHOCYTES PERCENT AUTO 41 % (21-46); MONOCYTES ABSOLUTE AUTO 0.67 K/mm3 (0.16-1.47); MONOCYTES PERCENT AUTO 11 % (4-13); Mean Corpuscular HGB 29.5 pg (26.0-34.0); Mean Corpuscular HGB Conc 31.5 g/dL (31.5-36.5); Mean Corpuscular Volume 94 fL (80-100); Mean Platelet Volume 10.9 fL (9.1-12.4); NEUTROPHILS ABSOLUTE AUTO 2.63 K/mm3 (1.96-9.15); NEUTROPHILS PERCENT AUTO 43 % (41-73); Platelet Count 221 K/mm3 (150-400); RDW Coefficient Variation 15.9 % (11.7-14.2); Red Blood Cell Count 4.91 M/mm3 (3.80-5.20); White Blood Cell Count 6.11 K/mm3 (4.00-11.30)
[2024-06-04] MEDS ORDERED: Milk 150ML/Molasses 150ML (300ML Total) PR ONE (11:50)
[2024-06-04 11:57] LABS: Albumin/Globulin Ratio 0.8 (0.8-1.8); Bun/Creatinine Ratio 21.6 (12.0-20.0); Calcium, Blood 9.1 mg/dL (8.5-10.1); Creatinine, Blood 1.11 mg/dL (0.40-1.00); Globulin, Blood 3.9 g/dL (2.2-4.0); Magnesium, Blood 2.4 mg/dL (1.6-2.4); Potassium, Blood 3.9 mmol/L (3.5-5.5); Total Protein, Blood 6.9 g/dL (6.4-8.2)
[2024-06-04 13:02] LABS: Source, Urine Clean Catch
[2024-06-04 13:18] LABS: Appearance, Urine Hazy (Clear); Bilirubin, Urine Neg (Neg); Blood, Urine 5+ (Neg); Color, Urine Yellow (P-Yellow); Glucose Qualitative, Urine Neg (Neg); Ketones, Urine Neg (Neg); Leukocyte Esterase, Urine 3+ (Neg); Nitrite, Urine Pos (Neg); Protein, Urine 3+ (Neg); Urobilinogen, Urine 1+ (Normal)
[2024-06-04 13:27] LABS: Yeast/Fungi Urine Many /hpf
[2024-06-04 13:28] LABS: Bacteria Many /hpf; Squamous Epithelial Cells Rare /hpf (Few)
[2024-06-04] MEDS ORDERED: FentaNYL Citrate 50 MCG/ML 2 ML Injection IV ONE (13:45)
[2024-06-04] MEDS ORDERED: Propofol 10mg/ml 20 ml Vial (Procedural) IV SCH (14:30)
[2024-06-04] MEDS ORDERED: Lidocaine 2% Jelly Uro-Jet TOP ONE ×2 (15:40→15:45)
[2024-06-04] MEDS ORDERED: Midazolam HCl 1MG / ML 2ML Vial IV ONE (15:45)
[2024-06-04] MEDS ORDERED: FentaNYL Citrate 50 MCG/ML 2 ML Injection ONE (15:50)
[2024-06-04] MEDS ORDERED: BISA10S PR ×2 (16:56)
[2024-06-04] MEDS ORDERED: MIRALAX1714 PO ×2 (16:56)
[2024-06-04 18:12] VITALS: BP 97/73
== END 2024-06-04 18:40 | disposition home or self-care (01) ==
LOC: ER 09:14
PROVIDERS: Emergency Medicine
DX: K59.00 Constipation, unspecified (principal); I13.0 Hypertensive heart and chronic kidney disease with heart failure and stage 1 through stage 4 chronic kidney disease, or unspecified chronic kidney disease; I50.20 Unspecified systolic (congestive) heart failure; N18.30 Chronic kidney disease, stage 3 unspecified; I25.2 Old myocardial infarction; Z79.899 Other long term (current) drug therapy; Z86.73 Personal history of transient ischemic attack (TIA), and cerebral infarction without residual deficits; Z91.018 Allergy to other foods
CPT/HCPCS: 71260; 74177; 80053; 81001; 83690; 83735; 85025; 93005; 93010; 99284-25; J2250; J2704; J3010; Q9967

== ENCOUNTER 2024-06-07 11:42 | Emergency (ER) | payer OTHER ==
[~2024-06-07] VITALS: Ht 152.4 cm; Wt 42.2 kg
[~2024-06-07 11:42] MED LIST changes: +ELIQUIS5 M3 PO; +MIRALAX1714 PO; +ONDA4ODT SL
[2024-06-07] MEDS ORDERED: NS 1,000 ML IV SCH (12:00)
[2024-06-07 13:36] LABS: BASOPHILS ABSOLUTE AUTO 0.03 K/mm3 (0.00-0.23); BASOPHILS PERCENT AUTO 1 % (0-2); EOSINOPHILS ABSOLUTE AUTO 0.16 K/mm3 (0.00-0.68); EOSINOPHILS PERCENT AUTO 3 % (0-6); Hematocrit 41.7 % (33.0-51.0); Hemoglobin 13.5 g/dL (11.5-16.0); IMMATURE GRAN ABSOLUTE AUTO 0.02 K/mm3 (0.00-0.10); IMMATURE GRAN PERCENT AUTO 0 % (0-1); LYMPHOCYTES ABSOLUTE AUTO 2.57 K/mm3 (0.84-5.20); LYMPHOCYTES PERCENT AUTO 41 % (21-46); MONOCYTES ABSOLUTE AUTO 0.57 K/mm3 (0.16-1.47); MONOCYTES PERCENT AUTO 9 % (4-13); Mean Corpuscular HGB 28.7 pg (26.0-34.0); Mean Corpuscular HGB Conc 32.4 g/dL (31.5-36.5); Mean Corpuscular Volume 89 fL (80-100); Mean Platelet Volume 10.7 fL (9.1-12.4); NEUTROPHILS ABSOLUTE AUTO 2.99 K/mm3 (1.96-9.15); NEUTROPHILS PERCENT AUTO 47 % (41-73); Platelet Count 207 K/mm3 (150-400); RDW Coefficient Variation 16.1 % (11.7-14.2); RDW Standard Deviation 51.8 fL (35.1-46.3); White Blood Cell Count 6.34 K/mm3 (4.00-11.30)
[2024-06-07] MEDS ORDERED: Ampicillin Sod 1,000 MG in NS 50 ML IV ONE (13:45)
[2024-06-07 13:58] LABS: Albumin/Globulin Ratio 0.8 (0.8-1.8); Bilirubin, Total 1.2 mg/dL (0.1-1.0); Bun/Creatinine Ratio 19.8 (12.0-20.0); Calcium, Blood 9.2 mg/dL (8.5-10.1); Creatinine, Blood 1.16 mg/dL (0.40-1.00); Globulin, Blood 3.7 g/dL (2.2-4.0); Potassium, Blood 4.1 mmol/L (3.5-5.5); Total Protein, Blood 6.7 g/dL (6.4-8.2)
[2024-06-07] MEDS ORDERED: AMPI500 PO (15:07)
[2024-06-07] MEDS ORDERED: MIDO5 PO (16:06)
[2024-06-07 16:53] VITALS: BP 96/69
== END 2024-06-07 17:02 | disposition home or self-care (01) ==
LOC: ER 11:42
PROVIDERS: Emergency Medicine
DX: N39.0 Urinary tract infection, site not specified (principal); I13.0 Hypertensive heart and chronic kidney disease with heart failure and stage 1 through stage 4 chronic kidney disease, or unspecified chronic kidney disease; I50.20 Unspecified systolic (congestive) heart failure; N18.30 Chronic kidney disease, stage 3 unspecified; K21.9 Gastro-esophageal reflux disease without esophagitis; E78.5 Hyperlipidemia, unspecified; I48.91 Unspecified atrial fibrillation; Z86.73 Personal history of transient ischemic attack (TIA), and cerebral infarction without residual deficits; Z79.899 Other long term (current) drug therapy; Z91.018 Allergy to other foods
CPT/HCPCS: 36415; 71045; 80053; 83605; 85025; 96365; 99284-25; J0290; J7030